=== PATIENT | male | born 1985 | race Caucasian/White ===

== ENCOUNTER 2016-12-30 09:53 | Inpatient (IN) | payer MEDICAID, OTHER ==
[2016-12-30 10:45] LABS: % IMMATURE GRANULYOCYTES 0.5 % (0.0-1.1); ABSOLUTE IMMATURE GRANULOCYTES 0.02 10^3/uL (0.00-0.10); ADD DIFF? NO; ADD MORPH? NO; ADD SCAN? NO; ATYPICAL LYMPHOCYTE FLAG 10 (0-99); FRAGMENT RBC FLAG 0 (0-99); HEMATOCRIT 46.5 % (40.0-51.0); HEMOGLOBIN 15.9 g/dL (13.7-17.5); LEFT SHIFT FLG 0 (0-99); LIPEMIA HEMOLYSIS FLAG 90 (0-99); MEAN CELL HEMOGLOBIN 33.6 pg (27.9-34.1); MEAN CELL HEMOGLOBIN CONCENTR. 34.2 g/dL (32.4-36.7); MEAN CELL VOLUME 98.3 fL (81.5-99.8); MEAN PLATELET VOLUME 9.5 fL (8.7-11.7); PLATELET CLUMPS FLAG 0 (0-99); PLATELET COUNT 272 10^3/uL (150-400); RED BLOOD CELL COUNT 4.73 10^6/uL (4.40-6.38); RED CELL DISTRIBUTION WIDTH 15.3 % (11.5-15.2)
--- NOTE | 2016-12-30 10:45 | EDPHY ---
H & P Smoking Status: Heavy smoker Time Seen by Provider: 12/30/16 10:17 HPI/ROS: CHIEF COMPLAINT: Alcohol intoxication, suicidal ideation HISTORY OF PRESENT ILLNESS: 31-year-old homeless male presents to the emergency department by ambulance with alcohol intoxication. The patient states I want to kill myself. The patient tells me if you do not help me, I will go out and kill myself. 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 He denies homicidal ideation. The patient admitted to the nurse that he used heroin yesterday. He denies any other substance abuse. No reported trauma. REVIEW OF SYSTEMS: Constitutional: No fever, no chills. Eyes: No double or blurry vision. ENT: No sore throat. Respiratory: No cough, no shortness of breath. Cardiac: No chest pain. Gastrointestinal: No abdominal pain, vomiting or diarrhea. Genitourinary: No dysuria. Musculoskeletal: No neck or back pain. Skin: No rashes. Neurological: No headache. (EstherTeresa fink) Past Medical/Surgical History: Alcoholism (Teresa Carlton) Social History: Homeless (Teresa Carlton) Physical Exam: General Appearance: lethargic, no distress. Smells strongly of alcohol. Eyes: Pupils equal and round. Extraocular motions are all intact. ENT: Mouth: Mucous membranes moist. Respiratory: No wheezing, rhonchi, or rales, lungs are clear to auscultation. Cardiovascular: Regular rate and rhythm. Gastrointestinal: Abdomen is soft and nontender, no masses, no rebound or guarding, bowel sounds normal. Neurological: Alert and oriented x 3. Uncooperative, cannot determine. Skin: Warm and dry, no rashes. Musculoskeletal: Nontender to palpate along the cervical, thoracic or lumbar spine. Neck is supple. Extremities: Full range of motion and no peripheral edema. Psychiatric: Patient is oriented X 3, there is no agitation. (Makenna Carltonrina Chase) Constitutional: Initial Vital Signs Temperature (C) 36 C 12/30/16 10:09 Heart Rate 80 12/30/16 10:09 Respiratory Rate 12 12/30/16 10:09 Blood Pressure 118/89 H 12/30/16 10:09 O2 Sat (%) 91 L 12/30/16 10:09 O2 Delivery Mode Room Air O2 (L/minute) 2 Allergies/Adverse Reactions: metal Allergy (Uncoded 12/11/15 12:35) Home Medications: Medication Instructions Recorded NK [No Known Home Meds] 12/02/15 Medical Decision Making ED Course/Re-evaluation: 31-year-old male presents to the emergency department feeling depressed and suicidal. He is acutely intoxicated with alcohol. 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 The patient will be evaluated by mental health when he is medically cleared. He understands when he is clinically sober he can be evaluated by mental health. The patient has been placed on a detainer by myself. The patient is asking to be placed on an M1 hold. He still continues to feel suicidal. At 1500 the patient's repeat alcohol was 234. (Teresa Carlton) 7:00 a.m.- The patient has been stable throughout my shift. He is currently awaiting mental health evaluation pending his sobriety. The case will be signed out to the oncoming provider Dr. Raphael. (Amina Longoria) Differential Diagnosis: Altered mental status including but not limited to hypoglycemia, infectious process, electrolyte abnormality, head injury and intoxicants. Depression including functional and major depression, situational depression, medication side effect, drugs and alcohol abuse. (Teresa Carlton) Other Provider: Patient's care transferred to sc at 5:00 p.m. by Teresa Luis. On my evaluation the patient is sleeping and has no complaints. He is awaiting sobriety and then psychiatric evaluation. 11:00 p.m. the patient has been up into the bathroom. He is clinically sober. We are awaiting psychiatric evaluation. Care transferred to Dr. Ellen Longoria 4:20 p.m. patient's care transferred back to sc by Dr. Nikky Raphael. We are awaiting psychiatric placement. Continues to feel depressed. He told us that he had been vomiting all day although none of this was witnessed by ER staff. 11:00 p.m. patient did have mild withdrawal symptoms and was treated successfully with oral Ativan. He is currently sleeping. Care transferred to Dr. Longoria. We continue to await placement. (Ezequiel Warner) I assumed care of this patient at 7:00 a.m. on December 31, 2016. When I interview him he tells me that he is extremely depressed. He stated that he had been vomiting during the day but there has been no witnessed or reported vomiting. His heart is regular and his lungs are clear. On exam he has mild diffuse abdominal tenderness, no guarding. His care will be transferred to Dr. Warner at 4:15 PM. Awaiting placement. (Nikky Raphael) Care Turn Over: Care will be turned over to Dr. Warner at shift change (Teresa Carlton) - Data Points Laboratory Results: Laboratory Results 12/30/16 09:50 12/30/16 09:50 Medications Given: Discontinued Medications Sodium Chloride (Ns) 1,000 mls @ 0 mls/hr IV ONCE ONE PRN Reason: Wide Open Stop: 12/30/16 11:07 Last Admin: 12/30/16 11:07 Dose: 1,000 mls Sodium Chloride (Ns) 1,000 mls @ 0 mls/hr IV ONCE ONE PRN Reason: Wide Open Stop: 12/30/16 11:34 Last Admin: 12/30/16 11:36 Dose: 1,000 mls Sodium Chloride (Ns) 1,000 mls @ 0 mls/hr IV ONCE ONE PRN Reason: Wide Open Stop: 12/30/16 16:22 Last Admin: 12/30/16 16:49 Dose: 1,000 mls Ibuprofen (Motrin) 600 mg PO EDNOW ONE Stop: 12/31/16 05:20 Last Admin: 12/31/16 05:19 Dose: 600 mg Ibuprofen (Motrin) 600 mg PO EDNOW ONE Stop: 01/01/17 05:08 Last Admin: 01/01/17 05:12 Dose: 600 mg Lorazepam (Ativan Injection) 1 mg IVP EDNOW ONE Stop: 12/30/16 14:36 Last Admin: 12/30/16 14:46 Dose: 1 mg Lorazepam (Ativan Injection) 1 mg IVP ONCE ONE Stop: 12/30/16 18:29 Last Admin: 12/30/16 18:29 Dose: 1 mg Lorazepam (Ativan) 2 mg PO EDNOW ONE Stop: 12/31/16 20:39 Last Admin: 12/31/16 20:52 Dose: 2 mg Lorazepam (Ativan) 2 mg PO EDNOW ONE Stop: 01/01/17 05:09 Last Admin: 01/01/17 05:12 Dose: 2 mg Nicotine (Nicoderm Cq) 14 mg TD EDNOW ONE Stop: 12/31/16 09:15 Last Admin: 12/31/16 09:17 Dose: 14 mg Nicotine Polacrilex (Nicorette) 2 mg B ONCE ONE Stop: 12/30/16 20:16 Last Admin: 12/30/16 19:45 Dose: 2 mg Ondansetron HCl (Zofran) 4 mg IVP EDNOW ONE Stop: 12/30/16 14:36 Last Admin: 12/30/16 14:46 Dose: 4 mg Ondansetron HCl (Zofran Odt) 4 mg PO EDNOW ONE Stop: 12/31/16 22:19 Last Admin: 12/31/16 22:31 Dose: 4 mg Departure - Departure Clinical Impression: Suicidal ideation Alcoholic intoxication Qualifiers: Complication of substance-induced condition: uncomplicated Qualified Code(s): F10.120 - Alcohol abuse with intoxication, uncomplicated Condition: Fair Referrals: [facility] [Outside] - As per Instructions
[2016-12-30 10:55] LABS: ALANINE AMINOTRANSFERASE 48 IU/L (21-72); ALBUMIN 4.3 g/dL (3.5-5.0); ALKALINE PHOSPHATASE 97 IU/L (38-126); ANION GAP 16 mEq/L (8-16); ASPARTATE AMINOTRANSFERASE 58 IU/L (17-59); BILIRUBIN,TOTAL 0.5 mg/dL (0.1-1.4); BILIRUBIN-CONJUGATED 0.3 mg/dL (0.0-0.5); BILIRUBIN-UNCONJUGATED 0.2 mg/dL (0.0-1.1); CALCIUM 8.5 mg/dL (8.5-10.4); CARBON DIOXIDE 25 mEq/l (22-31); CHLORIDE 106 mEq/L (97-110); CREATININE 0.7 mg/dL (0.7-1.3); GLOMERULAR FILTRATION RATE > 60; GLUCOSE 111 mg/dL (70-100); POTASSIUM 4.1 mEq/L (3.5-5.2); SALICYLATE < 1.0 mg/dL (2.0-20.0); SODIUM 147 mEq/L (134-144); TOTAL PROTEIN 7.4 g/dL (6.3-8.2)
[2016-12-30] MEDS ORDERED: NS 1,000 ML IV ONE ×3 (11:06→16:21)
[2016-12-30 11:24] LABS: ETHANOL SERUM 417 mg/dL (0-10)
[2016-12-30] MEDS ORDERED: LORazepam 2 MG/ML INJ IVP ONE ×2 (14:35→18:28)
[2016-12-30] MEDS ORDERED: ONDANSETRON 4 MG/2 ML VIAL IVP ONE (14:35)
[2016-12-30] MEDS ORDERED: LORazepam 2 MG/ML INJ ONE (18:16)
[2016-12-30] MEDS ORDERED: NICOTINE POLACRILEX 2 MG GUM B ONE ×2 (19:47→20:15)
[2016-12-31] MEDS ORDERED: IBUPROFEN 600 MG TAB PO ONE ×2 (05:15→05:19)
[2016-12-31] MEDS ORDERED: NICOTINE 14 MG/24 HR PATCH TD ONE (09:14)
[2016-12-31] MEDS ORDERED: LORazepam 1 MG TAB PO ONE (20:38)
[2016-12-31] MEDS ORDERED: ONDANSETRON DISINTEGRATING 4 MG TAB PO ONE (22:18)
[2017-01-01] MEDS ORDERED: IBUPROFEN 600 MG TAB PO ONE (05:07)
[2017-01-01] MEDS ORDERED: LORazepam 1 MG TAB PO ONE ×3 (05:08→17:25)
[2017-01-01] MEDS ORDERED: LORazepam 1 MG TAB ONE (12:08)
[2017-01-01] MEDS ORDERED: NICOTINE 21 MG/24 HR PATCH TD ONE (12:09)
[2017-01-01] MEDS ORDERED: ONDANSETRON DISINTEGRATING 4 MG TAB ONE (18:30)
[2017-01-01] MEDS ORDERED: OLANZapine DISINTEGR 5 MG TAB PO PRN (21:26)
[2017-01-01] MEDS: LORazepam 0.5 MG TAB PO PRN (21:54)
[2017-01-02] MEDS: LORazepam 0.5 MG TAB PO PRN ×2 (08:26→12:36)
[2017-01-02] MEDS: NICOTINE 21 MG/24 HR PATCH TD SCH (08:26)
[2017-01-02] MEDS: NICOTINE POLACRILEX 2 MG GUM B PRN ×4 (12:36→22:51)
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
[2017-01-02] MEDS ORDERED: PROMETHAZINE HCL 25 MG SUPPR PR PRN (16:14)
[2017-01-02] MEDS ORDERED: MAGNESIUM HYDROXIDE 30 ML UDCUP PO PRN (16:14)
[2017-01-02] MEDS ORDERED: PROMETHAZINE HCL 25 MG TAB PO PRN (16:14)
[2017-01-02] MEDS ORDERED: THIAMINE HCL 100 MG TAB PO ONE (16:14)
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
[2017-01-02] MEDS: QUEtiapine FUMARATE 50 MG TAB PO PRN ×2 (18:53→22:51)
[2017-01-02] MEDS: IBUPROFEN 200 MG TAB PO PRN (22:51)
[2017-01-03] MEDS: chlordiazePOXIDE 25 MG CAP PO PRN ×4 (08:34→22:46)
[2017-01-03] MEDS: NICOTINE 21 MG/24 HR PATCH TD SCH (08:35)
[2017-01-03] MEDS: IBUPROFEN 200 MG TAB PO PRN ×2 (10:45→15:50)
[2017-01-03] MEDS: NICOTINE POLACRILEX 2 MG GUM B PRN ×4 (10:47→20:52)
[2017-01-03] MEDS: MULTIVITAMINS 1 EACH TAB PO SCH (10:47)
[2017-01-03] MEDS: FOLIC ACID 1 MG TAB PO SCH (10:48)
--- NOTE | 2017-01-03 11:39 | SOAPPROG ---
SOAP Progress Note Assessment/Plan: Assessment: Plan: 01/03/17 11:38 Some withdrawal sx's. Continue CIWA. Continue supportive therapies. Change to voluntary status. Subjective: Pt seen, discussed with staff. Vomiting this morning. Given Librium. Remains distraught, stating, "My life is over, I have nothing to live for." Requests help with housing though also states, "I know I'll leave it and go drink anyway so it's hopeless." Objective: Vital Signs Temp Pulse Resp BP Pulse Ox 36.6 C 100 12 134/94 H 99 01/02/17 22:57 01/03/17 08:33 01/03/17 08:16 01/03/17 08:16 01/03/17 08:16 01/02/17 01/03/17 01/04/17 05:59 05:59 05:59 Intake Total 4000 Balance 4000 MSE: Calm, coop. Affect is constricted, stable. Mood is "terrible, the worst. " TP linear. TC reveals no mention of AH's or paranoia. SI persists conditional on housing. - Time Spent With Patient Time Spent With Patient: 25" - Pending Discharge Pending Discharge Within 24 Hours: No Pending Discharge Within 48 Hours: No ICD10 Worksheet Patient Problems: Problems Problem Status Onset Alcoholic intoxication Acute Suicidal ideation Acute Alcohol withdrawal Acute
[2017-01-03] MEDS: THIAMINE HCL 100 MG TAB PO SCH (15:40)
[2017-01-03] MEDS: MAG HYDROX/AL HYDROX/SIMETH 30 ML UDCUP PO PRN ×2 (15:50→20:52)
[2017-01-03] MEDS: QUEtiapine FUMARATE 50 MG TAB PO PRN ×2 (19:25→23:28)
[2017-01-04] MEDS: FOLIC ACID 1 MG TAB PO SCH (08:16)
[2017-01-04] MEDS: MULTIVITAMINS 1 EACH TAB PO SCH (08:16)
[2017-01-04] MEDS: NICOTINE 21 MG/24 HR PATCH TD SCH (08:16)
[2017-01-04] MEDS: THIAMINE HCL 100 MG TAB PO SCH (08:18)
[2017-01-04] MEDS: NICOTINE POLACRILEX 2 MG GUM B PRN ×8 (09:55→21:45)
[2017-01-04] MEDS ORDERED: TUBERCULIN (PPD) 5 TU/0.1 ML SYRINGE ID ONE (10:45)
--- NOTE | 2017-01-04 10:55 | SOAPPROG ---
SOAP Progress Note Assessment/Plan: Assessment: Pt is a 31 S C male who is homeless with a hx of severe alcoholism who states he blackouts every time he drinks who came in with cc/o SI with plan. Pt was sober for 3 years in the past. Plan:start Lexapro 5mg QD for anxiety/depression D/C CIWA's D/C SP and pt can shave to help self esteem pt is vol 01/04/17 10:50 Subjective: c/o feeling hopeless Objective: Vital Signs Temp Pulse Resp BP Pulse Ox 36.8 C 78 14 121/67 H 94 01/04/17 06:30 01/04/17 06:30 01/04/17 06:30 01/04/17 06:30 01/04/17 06:30 Pt is A+O x4 mood-depressed affect-appr thoughts-logical reports chronic AH but does not appear to be responding to internal stimuli speech-wnl slept 9 hours no sx of psychosis/elena observed appetite-fair energy level-low I/J-limited - Time Spent With Patient Time Spent With Patient: 30' - Pending Discharge Pending Discharge Within 24 Hours: No Pending Discharge Within 48 Hours: No ICD10 Worksheet Patient Problems: Problems Problem Status Onset Alcoholic intoxication Acute Suicidal ideation Acute Alcohol withdrawal Acute
[2017-01-04] MEDS ORDERED: IBUPROFEN 200 MG TAB PO PRN (10:56)
[2017-01-04] MEDS: IBUPROFEN 800 MG TAB PO PRN ×2 (11:06→19:29)
[2017-01-04] MEDS: LORazepam 0.5 MG TAB PO PRN ×2 (11:08→17:24)
[2017-01-04] MEDS: ESCITALOPRAM OXALATE 10 MG TAB PO SCH (11:08)
[2017-01-04] MEDS ORDERED: PREPARATION H 51 GM CRTUBE PR PRN (14:17)
[2017-01-04] MEDS: PHENYLEPHRINE/SHK LV/MO/PET,WH 1 APP/GM OINT PR PRN (17:24)
[2017-01-04] MEDS: QUEtiapine FUMARATE 50 MG TAB PO PRN (20:58)
[2017-01-05] MEDS: LORazepam 0.5 MG TAB PO PRN ×3 (06:06→17:08)
[2017-01-05] MEDS: NICOTINE POLACRILEX 2 MG GUM B PRN ×6 (06:09→21:02)
[2017-01-05] MEDS: MULTIVITAMINS 1 EACH TAB PO SCH (07:51)
[2017-01-05] MEDS: THIAMINE HCL 100 MG TAB PO SCH (07:51)
[2017-01-05] MEDS: FOLIC ACID 1 MG TAB PO SCH (07:51)
[2017-01-05] MEDS: ESCITALOPRAM OXALATE 10 MG TAB PO SCH (07:52)
[2017-01-05] MEDS: NICOTINE 21 MG/24 HR PATCH TD SCH (07:55)
[2017-01-05] MEDS: IBUPROFEN 800 MG TAB PO PRN ×2 (09:09→17:08)
[2017-01-05] MEDS: PHENYLEPHRINE/SHK LV/MO/PET,WH 1 APP/GM OINT PR PRN ×2 (09:09→21:11)
[2017-01-05] MEDS: QUEtiapine FUMARATE 50 MG TAB PO PRN ×2 (12:12→21:02)
--- NOTE | 2017-01-05 12:55 | SOAPPROG ---
SOAP Progress Note Assessment/Plan: Assessment: Plan: 01/03/17 11:38 Some withdrawal sx's. Continue CIWA. Continue supportive therapies. Change to voluntary status. 01/05/17 12:54 Remains depressed. Will CCM. Subjective: Pt seen, discussed with staff. Reports feeling "terrible, hopeless." States, "I can't go on, I'm really suicidal. There's no hope for me." Started Lexapro 5mg yesterday and believes it interfered with his sleep last night. He remains intermittently nauseated though no signs or sx's of w/drawal. VS slightly elevated this morning. Objective: Vital Signs Temp Pulse Resp BP Pulse Ox 36.4 C 72 14 140/89 H 98 01/05/17 06:19 01/05/17 06:19 01/05/17 06:19 01/05/17 06:19 01/05/17 06:19 MSE: Moderately anxious, coop, interactive. Affect is blunted, dysphoric, anxious, stable. Mood is "terrible." TP linear. TC reveals no psychosis. SI persists. - Time Spent With Patient Time Spent With Patient: 25" - Pending Discharge Pending Discharge Within 24 Hours: No Pending Discharge Within 48 Hours: No ICD10 Worksheet Patient Problems: Problems Problem Status Onset Alcoholic intoxication Acute Suicidal ideation Acute Alcohol withdrawal Acute
[2017-01-05] MEDS: PROMETHAZINE HCL 25 MG TAB PO PRN (14:13)
[2017-01-06 06:17] VITALS: TEMP 97.5
[2017-01-06] MEDS: FOLIC ACID 1 MG TAB PO SCH (08:06)
[2017-01-06] MEDS: NICOTINE 21 MG/24 HR PATCH TD SCH (08:06)
[2017-01-06] MEDS: NICOTINE POLACRILEX 2 MG GUM B PRN ×7 (08:06→22:09)
[2017-01-06] MEDS: MULTIVITAMINS 1 EACH TAB PO SCH (08:06)
[2017-01-06] MEDS: PHENYLEPHRINE/SHK LV/MO/PET,WH 1 APP/GM OINT PR PRN ×2 (09:04→17:43)
[2017-01-06] MEDS: LORazepam 0.5 MG TAB PO PRN ×2 (09:55→16:21)
[2017-01-06] MEDS: QUEtiapine FUMARATE 50 MG TAB PO PRN ×3 (10:54→22:08)
--- NOTE | 2017-01-06 13:59 | SOAPPROG ---
SOAP Progress Note Assessment/Plan: Assessment: Plan: 01/03/17 11:38 Some withdrawal sx's. Continue CIWA. Continue supportive therapies. Change to voluntary status. 01/05/17 12:54 Remains depressed. Will CCM. 01/06/17 13:59 Mood remains subjectively depressed. Focused on social needs/secondary gain. Compliant with treatment. CCM. Subjective: Pt seen, discussed with staff. Reports feeling "terrible." States, "I'm really anxious. I'm afraid you are going to discharge me and I'm not ready." Remains focused on housing. States he wants to continue Seroquel but not Lexapro. We reviewed the potential role of Lexapro for his depression. Despite persistently identifying himself as depressed and suicidal, he continues to state that "this is all from my Schizophrenia." Objective: Vital Signs Temp Pulse Resp BP Pulse Ox 36.4 C 79 14 113/70 95 01/06/17 06:15 01/06/17 06:15 01/06/17 06:15 01/06/17 06:15 01/06/17 06:15 MSE: Calm, coop. Affect is constricted, stable. Mood is "terrible." TP linear. TC reveals no psychosis. SI persists. - Time Spent With Patient Time Spent With Patient: 25" - Pending Discharge Pending Discharge Within 24 Hours: No Pending Discharge Within 48 Hours: No ICD10 Worksheet Patient Problems: Problems Problem Status Onset Alcoholic intoxication Acute Suicidal ideation Acute Alcohol withdrawal Acute
[2017-01-06] MEDS: IBUPROFEN 800 MG TAB PO PRN (17:44)
[2017-01-07] MEDS: ESCITALOPRAM OXALATE 10 MG TAB PO SCH (08:20)
[2017-01-07] MEDS: NICOTINE 21 MG/24 HR PATCH TD SCH (08:21)
[2017-01-07] MEDS: MULTIVITAMINS 1 EACH TAB PO SCH (08:22)
[2017-01-07] MEDS: NICOTINE POLACRILEX 2 MG GUM B PRN ×5 (08:22→22:58)
[2017-01-07] MEDS: LORazepam 0.5 MG TAB PO PRN ×2 (08:22→17:26)
[2017-01-07] MEDS: PROMETHAZINE HCL 25 MG TAB PO PRN (08:23)
[2017-01-07] MEDS: IBUPROFEN 800 MG TAB PO PRN ×2 (09:45→18:07)
[2017-01-07] MEDS: FOLIC ACID 1 MG TAB PO SCH (12:27)
[2017-01-07] MEDS: QUEtiapine FUMARATE 50 MG TAB PO PRN ×2 (12:57→22:16)
[2017-01-07] MEDS: PHENYLEPHRINE/SHK LV/MO/PET,WH 1 APP/GM OINT PR PRN (18:14)
--- NOTE | 2017-01-07 22:06 | SOAPPROG ---
SOAP Progress Note Assessment/Plan: Assessment: Plan: 01/03/17 11:38 Some withdrawal sx's. Continue CIWA. Continue supportive therapies. Change to voluntary status. 01/05/17 12:54 Remains depressed. Will CCM. 01/06/17 13:59 Mood remains subjectively depressed. Focused on social needs/secondary gain. Compliant with treatment. CCM. 01/07/17 22:07 Improved though remains focused on housing. CCM. Likely d/c first of the week when dispo is available. Subjective: Pt seen, discussed with staff. Remains dramatic, stating he will kill himself if not d/c'd to a permanent living circumstance. Refusing Lexapro due to previously noted denial of mood issues and insistence on Schizophrenic dx. Objective: Vital Signs Temp Pulse Resp BP Pulse Ox 36.4 C 76 14 112/70 96 01/07/17 06:00 01/07/17 06:00 01/07/17 06:00 01/07/17 06:00 01/07/17 06:00 MSE: Calm, coop. Affect is euthymic, stable. Mood is "terrible."' TP linear. TC reveals no psychosis. SI "06/22." - Time Spent With Patient Time Spent With Patient: 15" - Pending Discharge Pending Discharge Within 24 Hours: No Pending Discharge Within 48 Hours: No ICD10 Worksheet Patient Problems: Problems Problem Status Onset Alcoholic intoxication Acute Suicidal ideation Acute Alcohol withdrawal Acute
[2017-01-08] MEDS: QUEtiapine FUMARATE 50 MG TAB PO PRN ×2 (06:49→13:59)
[2017-01-08] MEDS: LORazepam 0.5 MG TAB PO PRN ×3 (07:01→19:23)
[2017-01-08] MEDS: PROMETHAZINE HCL 25 MG TAB PO PRN (07:01)
[2017-01-08] MEDS: MULTIVITAMINS 1 EACH TAB PO SCH (08:14)
[2017-01-08] MEDS: ESCITALOPRAM OXALATE 10 MG TAB PO SCH (08:14)
[2017-01-08] MEDS: NICOTINE 21 MG/24 HR PATCH TD SCH (08:15)
[2017-01-08] MEDS: FOLIC ACID 1 MG TAB PO SCH (08:24)
[2017-01-08] MEDS: NICOTINE POLACRILEX 2 MG GUM B PRN ×6 (11:50→21:28)
[2017-01-08] MEDS: PHENYLEPHRINE/SHK LV/MO/PET,WH 1 APP/GM OINT PR PRN (13:05)
[2017-01-08] MEDS: QUEtiapine FUMARATE 100 MG TAB PO SCH (20:09)
[2017-01-08] MEDS: IBUPROFEN 800 MG TAB PO PRN (20:28)
--- NOTE | 2017-01-08 22:45 | SOAPPROG ---
SOAP Progress Note Assessment/Plan: Assessment: Plan: 01/03/17 11:38 Some withdrawal sx's. Continue CIWA. Continue supportive therapies. Change to voluntary status. 01/05/17 12:54 Remains depressed. Will CCM. 01/06/17 13:59 Mood remains subjectively depressed. Focused on social needs/secondary gain. Compliant with treatment. CCM. 01/07/17 22:07 Improved though remains focused on housing. CCM. Likely d/c first of the week when dispo is available. 01/08/17 22:45 Stable. Appropriate for d/c tomorrow. Subjective: Pt seen, discussed with staff. Reports feeling ready to leave tomorrow, but still feels "pretty unsafe if I don't have housing." Compliant with meds, though told staff last night that he had no intention of taking meds or doing f/ u after d/c. Objective: Vital Signs Temp Pulse Resp BP Pulse Ox 36.4 C 76 14 112/70 96 01/07/17 06:00 01/07/17 06:00 01/07/17 06:00 01/07/17 06:00 01/07/17 06:00 MSE: Calm, coop. Affect is euthymic, stable. Mood is "OK." TP linear. TC reveals no psychosis. No current SI. - Time Spent With Patient Time Spent With Patient: 25" - Pending Discharge Pending Discharge Within 24 Hours: Yes Pending Discharge Date: 01/09/17 Pending Discharge Time: 11:00 ICD10 Worksheet Patient Problems: Problems Problem Status Onset Alcoholic intoxication Acute Suicidal ideation Acute Alcohol withdrawal Acute
[2017-01-09] MEDS: QUEtiapine FUMARATE 50 MG TAB PO PRN ×3 (03:08→20:07)
[2017-01-09] MEDS: NICOTINE POLACRILEX 2 MG GUM B PRN ×9 (03:09→22:29)
[2017-01-09] MEDS: PROMETHAZINE HCL 25 MG TAB PO PRN (08:06)
[2017-01-09] MEDS: PHENYLEPHRINE/SHK LV/MO/PET,WH 1 APP/GM OINT PR PRN (09:07)
[2017-01-09] MEDS: MULTIVITAMINS 1 EACH TAB PO SCH (09:13)
[2017-01-09] MEDS: NICOTINE 21 MG/24 HR PATCH TD SCH (09:14)
[2017-01-09] MEDS: FOLIC ACID 1 MG TAB PO SCH (09:14)
[2017-01-09] MEDS: ESCITALOPRAM OXALATE 10 MG TAB PO SCH (09:30)
[2017-01-09] MEDS: LORazepam 0.5 MG TAB PO PRN ×2 (10:44→17:05)
[2017-01-09] MEDS: IBUPROFEN 800 MG TAB PO PRN (10:44)
--- NOTE | 2017-01-09 18:55 | SOAPPROG ---
SOAP Progress Note Assessment/Plan: Assessment: Plan: 01/03/17 11:38 Some withdrawal sx's. Continue CIWA. Continue supportive therapies. Change to voluntary status. 01/05/17 12:54 Remains depressed. Will CCM. 01/06/17 13:59 Mood remains subjectively depressed. Focused on social needs/secondary gain. Compliant with treatment. CCM. 01/07/17 22:07 Improved though remains focused on housing. CCM. Likely d/c first of the week when dispo is available. 01/08/17 22:45 Stable. Appropriate for d/c tomorrow. 01/09/17 18:54 No change. Lots of secondary gain and drama. CCM, finalize d/c plan tomorroe. Subjective: Pt seen, discussed with staff. He reports being "too afraid" to d/c this morning. States he is "about to fall apart." I indicated to him that he has been here too long already and he agrees. Refused Lexapro again today and told RN he wasn't going to take any meds when he leaves the hospital. Objective: Vital Signs Temp Pulse Resp BP Pulse Ox 36.4 C 76 14 112/70 96 01/07/17 06:00 01/07/17 06:00 01/07/17 06:00 01/07/17 06:00 01/07/17 06:00 - Time Spent With Patient Time Spent With Patient: 15: ICD10 Worksheet Patient Problems: Problems Problem Status Onset Alcoholic intoxication Acute Suicidal ideation Acute Alcohol withdrawal Acute
[2017-01-09] MEDS: QUEtiapine FUMARATE 100 MG TAB PO SCH (21:19)
[2017-01-10] MEDS: QUEtiapine FUMARATE 50 MG TAB PO PRN (03:03)
[2017-01-10] MEDS: LORazepam 0.5 MG TAB PO PRN (03:03)
[2017-01-10] MEDS: NICOTINE POLACRILEX 2 MG GUM B PRN ×4 (03:04→10:36)
[2017-01-10 06:21] VITALS: BP 116/78; PULSE 89; RESP 16; O2SAT 98
[2017-01-10] MEDS: PHENYLEPHRINE/SHK LV/MO/PET,WH 1 APP/GM OINT PR PRN (09:09)
[2017-01-10] MEDS: FOLIC ACID 1 MG TAB PO SCH ×2 (09:11→10:35)
[2017-01-10] MEDS: ESCITALOPRAM OXALATE 10 MG TAB PO SCH (09:11)
[2017-01-10] MEDS: MULTIVITAMINS 1 EACH TAB PO SCH ×2 (09:12→10:35)
[2017-01-10] MEDS: NICOTINE 21 MG/24 HR PATCH TD SCH (09:12)
--- NOTE | 2017-01-12 18:19 | BDS ---
REASON FOR ADMISSION: Patient is a 31-year-old male who presented to the emergency depart formerly [facility] with a self-reported history of schizophrenia, depression, and bipolar disorder. He is homeles s and was heavily alcoholic. He presented on 12/30/2016 with a blood alcohol of 417. He had been i n a treatment program in [place] called [facility] for 2 months, and then decided abruptly to leav e and go on a binge. He was drinking for approximately a month prior to presenting to our hospital requesting hospitalization. A full description of the events preceding admission can be found in ks s admission history dated 01/02/2017. ADMITTING DIAGNOSES: Alcohol use disorder, severe. Schizophrenia by self-report. Possible major d epression, recurrent, severe, with psychosis. Homelessness, lack of supports. ADMISSION PHYSICAL EXAMINATION: Performed by Dr. Michael Kunz revealed no acute physical finding s. ADMISSION LABORATORY: CBC showed no significant abnormalities. Serum chemistry showed a sodium of 147, nonfasting glucose up at 111, otherwise normal. Liver function was normal. TSH was normal. [facility] drug screen was positive for benzodiazepines and marijuana. Alcohol was 417. HOSPITAL COURSE: Patient was admitted to the behavioral health services inpatient unit on an M1 hol d. He reported to me the history of schizophrenia, stating he heard voices and that he needed to be back on some form of medication. This seemed very questionable that he did not have any evidence o f disorganized thought and it seemed that this was likely a mechanism for him to request admission. A lot of secondary gain was obvious and malingering was considered. The patient had been in our em ergency department 12 times in the past year seeking treatment for alcohol or suicidality. He state d, on a daily basis, that if he did not get into a program of some form like the one he just left [facility] or permanent housing, that he was going to kill himself. scanning coordinator worked with the patient on a daily basis and considered several residential treatment programs, but he was unable t o get into those due to waiting lists. On the day of discharge, the patient stated that he felt wel l, that he had no thoughts of suicide, and he wanted to discharge. I reviewed with him the possibil ity that he would go and drink, and he stated that he did not want to drink, that he simply felt bet ter and wanted to go back to [place] where he had previously obtained services. Throughout his stay, patient was given Seroquel at bedtime to help with sleep and mood and tolerated this well with no side effects. CONDITION AT DISCHARGE: Stable. He was demonstrating euthymic, stable, and appropriate affect, and no evidence of psychosis. It is my firm belief that he has no chronic psychotic disorder, and I do not see evidence of an acute mood disorder, either. DISCHARGE DIAGNOSES: Alcohol use disorder, severe. Homelessness, addiction, lack of supports, poss ible mood disorder, no otherwise specified. DISCHARGE MEDICATIONS: Seroquel 100 mg p.o. q.h.s. DISPOSITION: The patient left the hospital of his own volition with a bus pass to return to [place]. FOLLOWUP: The patient states that he would either go to a senior living or attend [facility] appointment, which was scheduled for him before discharge. The patient refused referral to detox, s tating that he was "sick of rehabs." LEGAL COURSE: The patient was converted to a voluntary status at the expiration of his M1 hold. /[id number]/MODL
== END 2017-01-10 11:10 | disposition home or self-care (01) | DRG 897 ==
LOC: EDUNIT# → BBEH 01-01 19:30
PROVIDERS: ADMIT Psychiatry & Neurology Behavioral Neurology & Neuropsychiatry; ATTEND Psychiatry & Neurology Behavioral Neurology & Neuropsychiatry
DX: F10.220 Alcohol dependence with intoxication, uncomplicated (principal); Y90.7 Blood alcohol level of 200-239 mg/100 ml; F17.200 Nicotine dependence, unspecified, uncomplicated; F12.90 Cannabis use, unspecified, uncomplicated; F20.9 Schizophrenia, unspecified; F39 Unspecified mood [affective] disorder; Z59.0 Homelessness; Z87.820 Personal history of traumatic brain injury
CPT/HCPCS: 80305; 96374; G0480; J2405

== ENCOUNTER 2017-01-12 06:36 | Emergency (ER) | payer MEDICAID ==
[2017-01-12 06:56] VITALS: TEMP 98.2
[2017-01-12] MEDS ORDERED: chlordiazePOXIDE 25 MG CAP PO ONE ×2 (07:04→10:34)
[2017-01-12] MEDS ORDERED: LORazepam 2 MG/ML INJ IVP ONE ×2 (07:04→08:11)
[2017-01-12] MEDS ORDERED: NS 1,000 ML IV ONE ×2 (07:05→10:34)
--- NOTE | 2017-01-12 07:08 | EDPHY ---
H & P Time Seen by Provider: 01/12/17 07:00 HPI/ROS: CHIEF COMPLAINT: "I need to stop drinking" HISTORY OF PRESENT ILLNESS: The patient is a 31-year-old male with a history of schizophrenia and alcohol abuse who presents to the emergency department complaining of suicidal ideation and alcohol abuse. The patient states he has been drinking heavily. He drank last evening "pure alcohol." Patient states " I just can be homeless any more." He feels as though he is having alcohol withdrawal. He feels jittery and nauseated. Patient states that he wants to end his life because he can come on. He has no specific plan. REVIEW OF SYSTEMS: My complete review of systems is negative except as mentioned in the HPI. Past Medical/Surgical History: Includes alcohol abuse, schizophrenia, anxiety Social history: The patient drinks alcohol. Positive THC Smoking Status: Heavy smoker Physical Exam: Vitals noted. Tachycardic GENERAL: No acute distress, alert. HEENT: Eyes normal to inspection, normal pharynx, no signs of dehydration. NECK: No thyromegaly, no lymphadenopathy, supple. RESPIRATORY: Clear to auscultation bilaterally, no rales, rhonchi or wheezing. CVS: regular tachycardia, no rubs, murmurs, or gallops. ABDOMEN: Soft, nontender, nondistended, no organomegaly. BACK: Normal to inspection, no CVA tenderness. SKIN: Dirty. Normal color, no rash, warm, dry. No pallor. EXTREMITIES: No pedal edema, no calf tenderness, no Homans sign or cords, no joint swelling. NEURO/PSYCH: Alert and oriented, normal mood and affect, normal motor sensory exam. Constitutional: Initial Vital Signs Temperature (C) 36.8 C 01/12/17 06:53 Heart Rate 118 H 01/12/17 06:53 Respiratory Rate 20 01/12/17 06:53 Blood Pressure 133/83 H 01/12/17 06:53 O2 Sat (%) 96 01/12/17 06:53 O2 Delivery Mode Room Air Allergies/Adverse Reactions: metal Allergy (Uncoded 01/12/17 06:53) Home Medications: Medication Instructions Recorded QUEtiapine FUMARATE [Seroquel 100 100 mg PO HS #30 tab 01/10/17 mg (*)] Medical Decision Making ED Course/Re-evaluation: In the emergency department I discussed the plan with the patient. I answered all his questions. IV was placed. Patient was given normal saline 1 L IV for hydration. The patient was given Librium 25 mg orally and Ativan 1 mg IV for alcohol withdrawal. Patient was placed on a mental health hold. Psychiatric Services were contacted. Laboratory studies were ordered. On recheck the patient was still tachycardic. He is given a repeat dose of Ativan 1 mg IV. 1035: On recheck, the patient was still tachycardic. Patient was given normal saline 1 L IV for hydration. He was given a repeat dose of Librium 25 mg orally. Rechecked the patient on numerous occasions. His heart rate stabilized. 1425: The patient is being evaluated by EPS. EPS completed their evaluation. They felt the patient was safe for discharge. Dr. Chaudhry is lifting the hold. I discussed the plan with the patient. I answered all his questions. He is given warnings prior to leaving. Differential Diagnosis: My differential includes but is not limited to schizophrenia, depression, suicide ideation, alcohol abuse, alcohol intoxication, alcohol withdrawal, drug abuse, overdose, dehydration - Data Points Laboratory Results: Laboratory Results 01/12/17 06:58 01/12/17 06:58 01/12/17 01/12/17 01/12/17 07:50 06:58 06:58 WBC 9.15 10^3/uL 10^3/uL (3.80-9.50) RBC 4.81 10^6/uL 10^6/uL (4.40-6.38) Hgb 16.4 g/dL g/dL (13.7-17.5) Hct 46.7 % % (40.0-51.0) MCV 97.1 fL fL (81.5-99.8) MCH 34.1 pg pg (27.9-34.1) MCHC 35.1 g/dL g/dL (32.4-36.7) RDW 14.6 % % (11.5-15.2) Plt Count 326 10^3/uL 10^3/uL (150-400) MPV 9.3 fL fL (8.7-11.7) Neut % (Auto) 62.7 % % (39.3-74.2) Lymph % (Auto) 22.4 % % (15.0-45.0) [place] % (Auto) 12.9 % % (4.5-13.0) Eos % (Auto) 0.3 % L % (0.6-7.6) Baso % (Auto) 1.3 % % (0.3-1.7) Nucleat RBC Rel Count 0.0 % % (0.0-0.2) Absolute Neuts (auto) 5.73 10^3/uL 10^3/uL (1.70-6.50) Absolute Lymphs (auto) 2.05 10^3/uL 10^3/uL (1.00-3.00) Absolute Monos (auto) 1.18 10^3/uL H 10^3/uL (0.30-0.80) Absolute Eos (auto) 0.03 10^3/uL 10^3/uL (0.03-0.40) Absolute Basos (auto) 0.12 10^3/uL H 10^3/uL (0.02-0.10) Absolute Nucleated RBC 0.00 10^3/uL 10^3/uL (0-0.01) Immature Gran % 0.4 % % (0.0-1.1) Immature Gran # 0.04 10^3/uL 10^3/uL (0.00-0.10) Sodium 144 mEq/L mEq/L (134-144) Potassium 4.1 mEq/L mEq/L (3.5-5.2) Chloride 105 mEq/L mEq/L (97-110) Carbon Dioxide 21 mEq/l L mEq/l (22-31) Anion Gap 18 mEq/L H mEq/L (8-16) BUN 13 mg/dL mg/dL (7-23) Creatinine 0.9 mg/dL mg/dL (0.7-1.3) Estimated GFR > 60 Glucose 76 mg/dL mg/dL (70-100) Calcium 9.7 mg/dL mg/dL (8.5-10.4) Salicylates < 1.0 mg/dL L mg/dL (2.0-20.0) Urine Opiates Screen NEGATIVE (NEGATIVE) Acetaminophen < 10 mcg/mL L mcg/mL (10.0-30.0) Urine Barbiturates NEGATIVE (NEGATIVE) Ur Phencyclidine Scrn NEGATIVE (NEGATIVE) Ur Amphetamine Screen NEGATIVE (NEGATIVE) U Benzodiazepines Scrn NON-NEGATIVE H (NEGATIVE) Urine Cocaine Screen NEGATIVE (NEGATIVE) U Marijuana (THC) Screen NON-NEGATIVE H (NEGATIVE) Ethyl Alcohol 118 mg/dL H mg/dL (0-10) Medications Given: Discontinued Medications Chlordiazepoxide HCl (Librium) 25 mg PO EDNOW ONE Stop: 01/12/17 07:05 Last Admin: 01/12/17 07:21 Dose: 25 mg Chlordiazepoxide HCl (Librium) 25 mg PO EDNOW ONE Stop: 01/12/17 10:35 Last Admin: 01/12/17 10:40 Dose: 25 mg Sodium Chloride (Ns) 1,000 mls @ 0 mls/hr IV ONCE ONE PRN Reason: Wide Open Stop: 01/12/17 07:06 Last Admin: 01/12/17 07:07 Dose: 1,000 mls Sodium Chloride (Ns) 1,000 mls @ 0 mls/hr IV ONCE ONE PRN Reason: Wide Open Stop: 01/12/17 10:35 Last Admin: 01/12/17 10:40 Dose: 1,000 mls Lorazepam (Ativan Injection) 1 mg IVP EDNOW ONE Stop: 01/12/17 07:05 Last Admin: 01/12/17 07:21 Dose: 1 mg Lorazepam (Ativan Injection) 1 mg IVP EDNOW ONE Stop: 01/12/17 08:12 Last Admin: 01/12/17 10:35 Dose: 1 mg Nicotine Polacrilex (Nicorette) 2 mg B EDNOW ONE Stop: 01/12/17 07:22 Last Admin: 01/12/17 07:35 Dose: 2 mg Departure - Departure Disposition: Home, Routine, Self-Care Clinical Impression: Suicidal ideation Alcoholic intoxication Qualifiers: Complication of substance-induced condition: uncomplicated Qualified Code(s): F10.120 - Alcohol abuse with intoxication, uncomplicated Alcohol withdrawal Qualifiers: Complication of substance-induced condition: uncomplicated Qualified Code(s): F10.230 - Alcohol dependence with withdrawal, uncomplicated Condition: Good Instructions: Alcohol Withdrawal (ED), Depression (ED) Referrals: [facility],. [Clinic] - As per Instructions
[2017-01-12 07:15] LABS: % IMMATURE GRANULYOCYTES 0.4 % (0.0-1.1); ABSOLUTE IMMATURE GRANULOCYTES 0.04 10^3/uL (0.00-0.10); ADD DIFF? NO; ADD MORPH? NO; ADD SCAN? NO; ATYPICAL LYMPHOCYTE FLAG 30 (0-99); FRAGMENT RBC FLAG 0 (0-99); HEMATOCRIT 46.7 % (40.0-51.0); HEMOGLOBIN 16.4 g/dL (13.7-17.5); LEFT SHIFT FLG 0 (0-99); LIPEMIA HEMOLYSIS FLAG 90 (0-99); MEAN CELL HEMOGLOBIN 34.1 pg (27.9-34.1); MEAN CELL HEMOGLOBIN CONCENTR. 35.1 g/dL (32.4-36.7); MEAN CELL VOLUME 97.1 fL (81.5-99.8); MEAN PLATELET VOLUME 9.3 fL (8.7-11.7); PLATELET CLUMPS FLAG 0 (0-99); PLATELET COUNT 326 10^3/uL (150-400); RED BLOOD CELL COUNT 4.81 10^6/uL (4.40-6.38); RED CELL DISTRIBUTION WIDTH 14.6 % (11.5-15.2)
[2017-01-12] MEDS ORDERED: NICOTINE POLACRILEX 2 MG GUM B ONE (07:21)
[2017-01-12 07:28] LABS: ANION GAP 18 mEq/L (8-16); CALCIUM 9.7 mg/dL (8.5-10.4); CARBON DIOXIDE 21 mEq/l (22-31); CHLORIDE 105 mEq/L (97-110); CREATININE 0.9 mg/dL (0.7-1.3); ETHANOL SERUM 118 mg/dL (0-10); GLOMERULAR FILTRATION RATE > 60; GLUCOSE 76 mg/dL (70-100); POTASSIUM 4.1 mEq/L (3.5-5.2); SALICYLATE < 1.0 mg/dL (2.0-20.0); SODIUM 144 mEq/L (134-144)
[2017-01-12] MEDS ORDERED: LORazepam 2 MG/ML INJ ONE (10:30)
[2017-01-12] MEDS: NICOTINE POLACRILEX 2 MG GUM B PRN ×2 (10:35→14:01)
[2017-01-12 10:37] VITALS: BP 114/79
[2017-01-12 15:27] VITALS: PULSE 88; RESP 18; O2SAT 95
== END 2017-01-12 15:38 | disposition home or self-care (01) ==
LOC: EDUNIT#
DX: R45.851 Suicidal ideations (principal); F10.230 Alcohol dependence with withdrawal, uncomplicated; F17.200 Nicotine dependence, unspecified, uncomplicated
CPT/HCPCS: 80305; 96374; G0480

== ENCOUNTER 2017-01-12 18:17 | Emergency (ER) | payer MEDICAID ==
[2017-01-12 18:26] VITALS: TEMP 97.5
--- NOTE | 2017-01-12 18:51 | EDPHY ---
H & P Stated Complaint: drank purell Source: Patient Exam Limitations: No limitations - Personal History Current Tetanus Diphtheria and Acellular Pertussis (TDAP): Yes - Medical/Surgical History Hx Asthma: No Hx Chronic Respiratory Disease: No Hx Diabetes: No Hx Cardiac Disease: No Hx Renal Disease: No Hx Cirrhosis: No Hx Alcoholism: Yes Hx HIV/AIDS: No Hx Splenectomy or Spleen Trauma: No Other PMH: PMH: ETOH abuse, anxiety, schizophrenia, T8 fx - Social History Smoking Status: Heavy smoker Time Seen by Provider: 01/12/17 18:42 HPI/ROS: CHIEF COMPLAINT: Drank Purell HISTORY OF PRESENT ILLNESS: The patient presents to the ED after he reportedly drank Purell. The patient was in the emergency department earlier and reportedly was evaluated for possible psychiatric placement. He was refused at multiple facilities including [facility]. 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 The patient reportedly made suicidal statements. The patient does endorse symptoms of depression. The patient denies additional co-ingestion. The patient reports that he has had chronic thoughts of suicidal intermittently typically with thoughts of overdosing. The patient is somewhat evasive about his current suicidality. The patient states that he is certainly depressed surrounding his ongoing alcohol use homelessness. REVIEW OF SYSTEMS: A comprehensive 10 point review of systems is otherwise negative aside from elements mentioned in the history of present illness. (Rigo Benites) - Physical Exam Exam: General Appearance: Alert, no distress Eyes: Pupils equal and round no pallor or injection ENT, Mouth: Mucous membranes moist Respiratory: There are no retractions, lungs are clear to auscultation Cardiovascular: Regular rate and rhythm Gastrointestinal: Abdomen is soft and nontender, no masses, bowel sounds normal Neurological: A&O, normal motor function, normal sensory exam, normal cranial nerves Skin: Warm and dry, no rashes Musculoskeletal: Neck is supple nontender Extremities: symmetrical, full range of motion Psychiatric: Endorses symptoms of depression (Rigo Benites) Constitutional: Initial Vital Signs Temperature (C) 36.4 C 01/12/17 18:24 Heart Rate 102 H 01/12/17 18:24 Respiratory Rate 14 01/12/17 18:24 Blood Pressure 128/68 H 01/12/17 18:24 O2 Sat (%) 95 01/12/17 18:24 O2 Delivery Mode Room Air Allergies/Adverse Reactions: metal Allergy (Uncoded 01/12/17 06:53) Home Medications: Medication Instructions Recorded QUEtiapine FUMARATE [Seroquel 100 100 mg PO HS #30 tab 01/10/17 mg (*)] Medical Decision Making ED Course/Re-evaluation: The patient presents to the ED with alcohol intoxication, depression and vague symptoms of suicidal ideation. The patient had a extensive psychiatric evaluation done earlier today. The patient was noted to have an elevated blood alcohol level detected via breathalyzer upon arrival. It was rechecked the down. I re-evaluated the patient at 10:40 p.m.. The patient continues to endorse symptoms of ongoing depression and requesting assistance in managing his alcohol abuse. The patient does not feel as if he can fully contract for safety although he denies specific suicidal plan. Plan will be for further ED sobering and repeat evaluation by [facility] given the patient's rapid return to the emergency department following discharge earlier today. The patient will be turned over to Dr. Longoria at shift change pending sobriety and psychiatric evaluation. (Rigo Benites) 4:45 a.m.- The patient has been stable throughout my shift. He sobered and was evaluated by a [facility]. Was not deemed acutely suicidal. He was able to contract for safety. Does not meet criteria for inpatient admission. He would like to go to the warming correction currently and get something to eat. He will be discharged. (Amina Longoria) Differential Diagnosis: Differential diagnosis considered includes alcohol intoxication, suicidal ideation, acute schizophrenia, psychosis (Rigo Benites) - Data Points Laboratory Results: 01/12/17 22:50 Urine Opiates Screen NEGATIVE ng/mL ng/mL (NEGATIVE) Urine Barbiturates NEGATIVE ng/mL ng/mL (NEGATIVE) Ur Phencyclidine Scrn NEGATIVE ng/mL ng/mL (NEGATIVE) Ur Amphetamines Screen NEGATIVE ng/mL ng/mL (NEGATIVE) U Benzodiazepines Scrn 389 ng/mL ng/mL (NEGATIVE) Urine Cocaine Screen NEGATIVE ng/mL ng/mL (NEGATIVE) U Marijuana (THC) Screen 768 ng/mL ng/mL (NEGATIVE) Medications Given: Discontinued Medications Lorazepam (Ativan) 1 mg PO EDNOW ONE Stop: 01/13/17 01:27 Last Admin: 01/13/17 01:26 Dose: 1 mg Departure - Departure Disposition: Home, Routine, Self-Care Clinical Impression: Alcoholic intoxication, Severe major depression Condition: Fair Referrals: [facility] [Other] - As per Instructions
[2017-01-13] MEDS ORDERED: LORazepam 1 MG TAB PO ONE ×2 (01:26→04:30)
[2017-01-13] MEDS: NICOTINE POLACRILEX 2 MG GUM B PRN ×2 (01:33→02:50)
[2017-01-13 01:45] VITALS: RESP 16
[2017-01-13 01:58] LABS: PHENCYCLIDINE URINE BCH < 6 ng/ml (NEGATIVE); PHENCYCLIDINE URINE BCH NEGATIVE (NEGATIVE)
[2017-01-13 02:09] LABS: TETRAHYDROCANNABINOL URINE 768 ng/mL (NEGATIVE)
[2017-01-13] MEDS ORDERED: LORazepam 1 MG TAB ONE (04:38)
[2017-01-13 05:02] VITALS: BP 124/76; PULSE 88; O2SAT 94
== END 2017-01-13 05:02 | disposition home or self-care (01) ==
LOC: EDUNIT#
DX: F32.2 Major depressive disorder, single episode, severe without psychotic features (principal); F10.129 Alcohol abuse with intoxication, unspecified; F17.200 Nicotine dependence, unspecified, uncomplicated
CPT/HCPCS: 80307; G0480

== ENCOUNTER 2017-01-16 09:15 | Emergency (ER) | payer MEDICAID ==
[2017-01-16 09:25] VITALS: BP 129/103; PULSE 99; RESP 16; TEMP 97.9; O2SAT 96
[2017-01-16] MEDS ORDERED: MVI WITH VIT K 10 ML, FOLIC ACID 2.5 MG, THIAMINE HCL 100 MG, MAGNESIUM SULFATE 2 GM in... IV ONE (09:54)
--- NOTE | 2017-01-16 10:01 | EDPHY ---
H & P Time Seen by Provider: 01/16/17 09:45 HPI/ROS: This is a 31-year-old male that was brought in by EMS for ETOH intoxication. 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 Patient states he is just tired needs a place to sleep " I am tired of being on the streets" REVIEW OF SYSTEMS: Constitutional: (-)fatigue (+)decrease in appetite Eyes: (-)discharge ENT: (-)sore throat Respiratory: (-)cough (-)shortness of breath Cardiac: (-)chest pain (-)palpitations Gastrointestinal: (-)abdominal pain (-)vomit (-)diarrhea Musculoskeletal: (-)back pain (-)injury Skin: (-)rashes (-)lesions Neurological: (-) headache (-)dizziness Psych: (+)anxiety (-)SI/HI Past Medical/Surgical History: PMH: Anxiety, alcohol dependence, alcohol intoxication, schizophrenia Social History: Patient states alcohol on a daily use anywhere from a pt to 2 pt of vodka, along with hand handle maker on occasion Smoking Status: Heavy smoker Physical Exam: CONSTITUTIONAL: patient appeared well nourished, non-ill appearing. No acute distress. Vital signs as documented. HEENT: NCAT. PERRLA. Oropharynx normal NECK: Supple,FROM RESP: Non-labored resp effort, airway patent, CTAB CARDIAC: RRR w/o murmur, marine. Normal S1/S2 GI: Abd soft NTTP, NEURO: AAOx3 NAD, (-)slurred speech EXTREMITIES: (+)FROM without difficulty. (+)cms intact (-)fasiculations SKIN: (-)rash. (-)acute injury PSYCH: flat affect calm, no distress, patient belligerent using foul language wants to go to [place] for detox Constitutional: Initial Vital Signs Temperature (C) 36.6 C 01/16/17 09:23 Heart Rate 99 01/16/17 09:23 Respiratory Rate 16 01/16/17 09:23 Blood Pressure 129/103 H 01/16/17 09:23 O2 Sat (%) 96 01/16/17 09:23 O2 Delivery Mode Room Air Allergies/Adverse Reactions: metal Allergy (Uncoded 01/12/17 06:53) Home Medications: Medication Instructions Recorded QUEtiapine FUMARATE [Seroquel 100 100 mg PO HS #30 tab 01/10/17 mg (*)] Medical Decision Making ED Course/Re-evaluation: Discussed the plan of care: Multivitamin, folate, thiamine and Ativan 1 mg all meds given PO x 1. Patient states he feels little better, requesting to go to [place] for voluntary detox. Discharge---> stable, spoke with manager of case Maryann patient will be getting a bus pass to take to [facility] detox Differential Diagnosis: Clinical impression ETOH intoxication, other differential diagnosis considered but not limited to alcohol poisoning, drug overdose alcohol withdrawal Critical Care Time: Critical care time: 30min - Data Points Medications Given: Discontinued Medications Folic Acid (Folic Acid) 1 mg PO EDNOW ONE Stop: 01/16/17 10:35 Last Admin: 01/16/17 10:45 Dose: 1 mg Multivitamins 10 ml/ Folic Acid 2.5 mg/ Thiamine HCl 100 mg/ Magnesium Sulfate 2 gm/Sodium Chloride 1,015.5 mls @ 0 mls/hr IV EDNOW ONE PRN Reason: As Directed Stop: 01/16/17 09:55 Last Admin: 01/16/17 11:40 Dose: Not Given Lorazepam (Ativan) 1 mg PO EDNOW ONE Stop: 01/16/17 10:36 Last Admin: 01/16/17 11:36 Dose: 1 mg Multivitamins (Tab-A-Rufino) 1 each PO EDNOW ONE Stop: 01/16/17 10:36 Last Admin: 01/16/17 10:45 Dose: 1 each Thiamine HCl (Vitamin B-1) 100 mg PO EDNOW ONE Stop: 01/16/17 10:36 Last Admin: 01/16/17 10:45 Dose: 100 mg Departure - Departure Disposition: Home, Routine, Self-Care Clinical Impression: Alcohol intoxication Qualifiers: Complication of substance-induced condition: uncomplicated Qualified Code(s): F10.120 - Alcohol abuse with intoxication, uncomplicated Condition: Good Instructions: Alcohol Dependence (ED) Additional Instructions: You have been given a bus pass to [place] for voluntary detox please make sure you go there. Stop drinking hand handle maker Referrals: [facility],. [Clinic] - As per Instructions
[2017-01-16] MEDS ORDERED: FOLIC ACID 1 MG TAB PO ONE (10:34)
[2017-01-16] MEDS ORDERED: MULTIVITAMINS 1 EACH TAB PO ONE (10:35)
[2017-01-16] MEDS ORDERED: THIAMINE HCL 100 MG TAB PO ONE (10:35)
[2017-01-16] MEDS ORDERED: LORazepam 1 MG TAB PO ONE (10:35)
== END 2017-01-16 11:42 | disposition home or self-care (01) ==
LOC: EDUNIT#
DX: F10.120 Alcohol abuse with intoxication, uncomplicated (principal); F17.200 Nicotine dependence, unspecified, uncomplicated
CPT/HCPCS: J3411

== ENCOUNTER 2017-01-16 15:41 | Emergency (ER) | payer MEDICAID ==
--- NOTE | 2017-01-16 16:07 | EDPHY ---
H & P Stated Complaint: ETOH Source: Patient Exam Limitations: No limitations - Personal History Current Tetanus/Diphtheria Vaccine: Unsure Current Tetanus Diphtheria and Acellular Pertussis (TDAP): Unsure - Medical/Surgical History Hx Asthma: No Hx Chronic Respiratory Disease: No Hx Diabetes: No Hx Cardiac Disease: No Hx Renal Disease: No Hx Cirrhosis: No Hx Alcoholism: Yes Hx HIV/AIDS: No Hx Splenectomy or Spleen Trauma: No Other PMH: PMH: ETOH abuse, anxiety, schizophrenia, T8 fx - Social History Smoking Status: Heavy smoker Time Seen by Provider: 01/16/17 16:04 HPI/ROS: CHIEF COMPLAINT: Recurrent alcohol intoxication HISTORY OF PRESENT ILLNESS: The patient presents to the ED with complaints of recurrent alcohol intoxication. He has been seen in the emergency department approximately 13 times this year. The patient was placed on an M1 psychiatric hold today by the police after found him at a grocery store drinking. The patient recently had an inpatient psychiatric hospitalization for alleged suicidal ideation. In reviewing the record of that hospitalization it appears the patient was exhibiting symptoms consistent with malingering. In the ED today, the patient denies acute complaints. He does report that he is tired of life secondary to his profound alcoholism. He denies additional drug ingestion. REVIEW OF SYSTEMS: A comprehensive 10 point review of systems is otherwise negative aside from elements mentioned in the history of present illness. (Rigo Benites) - Physical Exam Exam: General Appearance: Alert, no distress Eyes: Pupils equal and round no pallor or injection ENT, Mouth: Mucous membranes moist Respiratory: There are no retractions, lungs are clear to auscultation Cardiovascular: Regular rate and rhythm Gastrointestinal: Abdomen is soft and nontender, no masses, bowel sounds normal Neurological: A&O, normal motor function, normal sensory exam, normal cranial nerves Skin: Warm and dry, no rashes Musculoskeletal: Neck is supple nontender Extremities: symmetrical, full range of motion (Rigo Benites) Constitutional: Initial Vital Signs Temperature (C) 36.8 C 01/16/17 15:41 Heart Rate 107 H 01/16/17 15:41 Respiratory Rate 16 01/16/17 15:41 Blood Pressure 125/82 H 01/16/17 15:41 O2 Sat (%) 92 01/16/17 15:41 O2 Delivery Mode Room Air Allergies/Adverse Reactions: metal Allergy (Uncoded 01/12/17 06:53) Home Medications: Medication Instructions Recorded QUEtiapine FUMARATE [Seroquel 100 100 mg PO HS #30 tab 01/10/17 mg (*)] Medical Decision Making ED Course/Re-evaluation: The patient's breathalyzer in the ED is 0.335. I reviewed the patient's past medical records including his ED visit from earlier today. I am fairly concerned that the patient is malingering based upon his prior psychiatric hospitalization notes. I re-evaluated the patient at 9:30 p.m.. He continues to endorse suicidal ideation. I am fairly concerned that he is malingering. However he cannot contract for safety. He is stating that he will cut his wrist if he is discharged from the emergency department. The patient did request benzodiazepines which she has not been given. The patient will have laboratories drawn and will be evaluated by the psychiatric team. Patient is turned over Dr. Russell Gil at shift change pending psychiatric evaluation. (Rigo Benites) 2129: I assumed care of this patient from Dr. Benites at shift change. This patient was turned over to me at shift change. After multiple attempts to have a discussion with this patient wall sober he still claims suicidality. We have drawn screening laboratory studies and he will be psychiatrically evaluated I will turn him over to Dr. Sullivan. (Russell Gil) I took over care of this patient at 10:30 p.m.. This patient is on an M1 hold for suicidal ideation and alcohol intoxication. Serum alcohol is 212. Urine drug screen was also positive for benzodiazepines and marijuana. He is awaiting behavioral health evaluation. 7:00 a.m., the patient still awaits behavioral health evaluation. This should happen sometime this morning. Care turned over to Dr. Rock Hodges at this time. (Hilaria Sullivan) Differential Diagnosis: Differential diagnosis considered includes alcohol intoxication, suicidal ideation, homicidal ideation (Rigo Benites) Other Provider: I received sign-out on this patient at 7:00 a.m.. At 11:30 p.m., the mental health cable reeler informed me that they felt the patient could not be evaluated from a psychiatric standpoint secondary to "his hemorrhoids hurt him too much." I recommended that they attempt this again. At 12:50 p.m., I was informed by the mental health cable reeler that his evaluation is complete. They recommend lifting hold in discharging the patient home. (Rock Hodges) - Data Points Laboratory Results: Laboratory Results 01/16/17 22:27 01/16/17 22:27 Medications Given: Discontinued Medications Chlordiazepoxide HCl (Librium) 25 mg PO EDNOW ONE Stop: 01/17/17 10:35 Last Admin: 01/17/17 10:40 Dose: 25 mg Lorazepam (Ativan) 1 mg PO EDNOW ONE Stop: 01/17/17 04:33 Last Admin: 01/17/17 04:35 Dose: 1 mg Nicotine Polacrilex (Nicorette) 2 mg B PRN ONE Stop: 01/17/17 04:34 Last Admin: 01/17/17 04:35 Dose: 2 mg Ondansetron HCl (Zofran Odt) 4 mg PO EDNOW ONE Stop: 01/17/17 04:35 Last Admin: 01/17/17 04:34 Dose: 4 mg Departure - Departure Disposition: Home, Routine, Self-Care Clinical Impression: Situational depression Alcohol dependence Qualifiers: Substance use status: with intoxication Complication of substance-induced condition: uncomplicated Qualified Code(s): F10.220 - Alcohol dependence with intoxication, uncomplicated Condition: Good Instructions: Suicide Prevention for Adults (ED) Referrals: Patient,NotPresent [Unknown] - As per Instructions
[2017-01-16 20:42] VITALS: O2SAT 95
[2017-01-16 22:31] LABS: % IMMATURE GRANULYOCYTES 0.2 % (0.0-1.1); ABSOLUTE IMMATURE GRANULOCYTES 0.02 10^3/uL (0.00-0.10); ADD DIFF? NO; ADD MORPH? NO; ADD SCAN? NO; ATYPICAL LYMPHOCYTE FLAG 20 (0-99); FRAGMENT RBC FLAG 0 (0-99); HEMATOCRIT 45.4 % (40.0-51.0); HEMOGLOBIN 16.1 g/dL (13.7-17.5); LEFT SHIFT FLG 0 (0-99); LIPEMIA HEMOLYSIS FLAG 90 (0-99); MEAN CELL HEMOGLOBIN 33.7 pg (27.9-34.1); MEAN CELL HEMOGLOBIN CONCENTR. 35.5 g/dL (32.4-36.7); MEAN PLATELET VOLUME 8.9 fL (8.7-11.7); PLATELET CLUMPS FLAG 0 (0-99); PLATELET COUNT 303 10^3/uL (150-400); RED BLOOD CELL COUNT 4.78 10^6/uL (4.40-6.38); RED CELL DISTRIBUTION WIDTH 14.6 % (11.5-15.2)
[2017-01-16 22:38] LABS: ANION GAP 14 mEq/L (8-16); CALCIUM 8.7 mg/dL (8.5-10.4); CARBON DIOXIDE 24 mEq/l (22-31); CHLORIDE 99 mEq/L (97-110); CREATININE 0.8 mg/dL (0.7-1.3); ETHANOL SERUM 212 mg/dL (0-10); GLOMERULAR FILTRATION RATE > 60; GLUCOSE 66 mg/dL (70-100); POTASSIUM 3.9 mEq/L (3.5-5.2); SODIUM 137 mEq/L (134-144)
[2017-01-17] MEDS: NICOTINE POLACRILEX 2 MG GUM B PRN ×3 (00:05→10:48)
[2017-01-17] MEDS ORDERED: LORazepam 1 MG TAB ONE (04:27)
[2017-01-17] MEDS ORDERED: ONDANSETRON DISINTEGRATING 4 MG TAB ONE (04:27)
[2017-01-17] MEDS ORDERED: LORazepam 1 MG TAB PO ONE (04:32)
[2017-01-17] MEDS ORDERED: NICOTINE POLACRILEX 2 MG GUM B ONE ×2 (04:33)
[2017-01-17] MEDS ORDERED: ONDANSETRON DISINTEGRATING 4 MG TAB PO ONE (04:34)
[2017-01-17 08:23] VITALS: BP 135/84; PULSE 93; RESP 16; TEMP 98.4
[2017-01-17] MEDS ORDERED: chlordiazePOXIDE 25 MG CAP PO ONE (10:34)
== END 2017-01-17 14:07 | disposition home or self-care (01) ==
LOC: EDUNIT#
DX: F43.21 Adjustment disorder with depressed mood (principal); F10.220 Alcohol dependence with intoxication, uncomplicated; F17.200 Nicotine dependence, unspecified, uncomplicated
CPT/HCPCS: 80305; G0480

== ENCOUNTER 2017-01-23 15:25 | Emergency (ER) | payer MEDICAID ==
--- NOTE | 2017-01-23 15:38 | EDPHY ---
H & P Time Seen by Provider: 01/23/17 15:34 HPI/ROS: CHIEF COMPLAINT: Alcohol abuse, suicidality HISTORY OF PRESENT ILLNESS: The patient is a 31-year-old man well known to our department and myself. He is here frequently for alcohol abuse and suicidal ideation while intoxicated. 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 He even tried to steal at as he is leaving the hospital. His typical pattern is to stay here and claim suicidality until he is evaluated by Mental Health and that he abruptly leaves and refuses everything or claims other medical conditions prohibiting him from psychiatric evaluation. He is currently at his baseline. No signs of injury or reports. He was found on the sidewalk drinking hand quote clerk today. He is not on a psychiatric hold. REVIEW OF SYSTEMS: Not cooperative EXAM: GENERAL: Disheveled well-nourished and in no acute distress. HEAD: Atraumatic, normocephalic. EYES: Pupils equal round and reactive to light, extraocular movements intact, sclera anicteric, conjunctiva are normal. ENT: TMs normal, nares patent, oropharynx clear without exudates. Moist mucous membranes. NECK: Normal range of motion, supple without lymphadenopathy or JVD. LUNGS: Breath sounds clear to auscultation bilaterally and equal. No wheezes rales or rhonchi. HEART: Regular rate and rhythm without murmurs, rubs or gallops. ABDOMEN: Soft, nontender, normoactive bowel sounds. No guarding, no rebound. No masses appreciated. BACK: No CVA tenderness, no spinal tenderness, step-offs or deformities EXTREMITIES: Normal range of motion, no pitting or edema. No clubbing or cyanosis. NEUROLOGICAL: Cranial nerves II through XII grossly intact. Normal speech, normal gait. 5/5 strength, normal movement in all extremities, normal sensation PSYCH: Originally endorse suicidal ideation now denies. Admits to being here for secondary intentions. SKIN: Warm, dry, normal turgor, no visible rashes or lesions. Source: Patient, EMS, Old records Exam Limitations: No limitations - Medical/Surgical History Hx Asthma: No Hx Chronic Respiratory Disease: No Hx Diabetes: No Hx Cardiac Disease: No Hx Renal Disease: No Hx Cirrhosis: No Hx Alcoholism: Yes Hx HIV/AIDS: No Hx Splenectomy or Spleen Trauma: No Other PMH: PMH: ETOH abuse, anxiety, schizophrenia, T8 fx - Family History Significant Family History: Hypertension - Social History Smoking Status: Heavy smoker Alcohol Use: Heavy Drug Use: Marijuana Constitutional: Initial Vital Signs Temperature (C) 36.7 C 01/23/17 16:01 Heart Rate 119 H 01/23/17 16:01 Respiratory Rate 16 01/23/17 16:01 Blood Pressure 121/78 H 01/23/17 16:01 O2 Sat (%) 93 01/23/17 16:01 O2 Delivery Mode Room Air Allergies/Adverse Reactions: metal Allergy (Uncoded 01/25/17 11:00) Home Medications: Medication Instructions Recorded Amoxicillin/Clavulanate Pot 875 mg PO BID #14 tab 01/25/17 [Augmentin 875 mg tab] Hydrocortisone Acetate [Anucort-Hc] 25 mg RC Q12 PRN #10 supp.rect 01/25/17 Medical Decision Making ED Course/Re-evaluation: Patient is clearly malingering. He is here for food and penitentiary and to steal more hand quote clerk. He is on an are cold but is not allowed there. Police stated that they would like to take him to alf. I will discharge him at this time. He is not suicidal this time. He has climbed to be so many times in the past although this has typically been diagnosed as malingering by mental health professionals. Differential Diagnosis: Partial list of the Differential diagnosis considered include but were not limited to; intoxication, malingering, anxiety and although unlikely based on the history and physical exam, I also considered head injury, infection. Departure - Departure Disposition: Home, Routine, Self-Care Clinical Impression: Malingering Alcoholic intoxication Qualifiers: Complication of substance-induced condition: with unspecified complication Qualified Code(s): F10.129 - Alcohol abuse with intoxication, unspecified Condition: Fair Instructions: Abuse of Alcohol (ED) Referrals: Ronnie Gutierrez MD [Medical Doctor] - As per Instructions
[2017-01-23 16:05] VITALS: BP 121/78; PULSE 119; RESP 16; TEMP 98.1; O2SAT 93
== END 2017-01-23 16:10 | disposition home or self-care (01) ==
LOC: EDUNIT#
DX: F10.129 Alcohol abuse with intoxication, unspecified (principal); F17.200 Nicotine dependence, unspecified, uncomplicated; Z76.5 Malingerer [conscious simulation]

== ENCOUNTER 2017-01-25 10:44 | Emergency (ER) | payer MEDICAID ==
[2017-01-25 11:04] VITALS: PULSE 96; RESP 18; O2SAT 95
--- NOTE | 2017-01-25 12:01 | EDPHY ---
H & P Time Seen by Provider: 01/25/17 11:34 HPI/ROS: CHIEF COMPLAINT: Rectal pain HISTORY OF PRESENT ILLNESS: Patient states he said rectal pain for the past 3 days. He has a known pilonidal cyst that was drained 2 years ago at [facility]. Says is hemorrhoids are also painful. Denies rectal bleeding or abdominal pain or fever or foreign body. 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 He told his father earlier today that he was suicidal but currently denies that to me. He did not have a plan or specific intent according to his father A comprehensive 10 point review of systems is otherwise negative aside from elements mentioned in the history of present illness. PAST MEDICAL HISTORY: Pilonidal cyst, schizophrenia, T8 fracture, alcoholism and anxiety Social history: Here with his father General Appearance: Alert and conversant, cooperative. Eyes: No scleral icterus. ENT, Mouth: Normal mucous membranes. Respiratory: Normal respiratory effort, breath sounds equal, lungs are clear to auscultation. Cardiovascular: Regular rate and rhythm. Gastrointestinal: Abdomen is soft and non tender. Rectal shows slightly swollen and tender pilonidal area on the right just superior to the anus. No perirectal induration or redness or tenderness. He does have some external hemorrhoids but they are not thrombosed and there is no active bleeding. Neurological: Alert and oriented x3. Normally conversant. Face symmetric, normal movement and sensation in all extremities. Skin: Warm and dry, no rashes. Musculoskeletal: No peripheral edema and no joint swelling. Psychiatric: Not agitated. Patient denies suicidal ideation or intent on multiple questionings by myself during the interview. Emergency Department course/MDM: Patient had ChloraPrep and 1% lidocaine with epinephrine anesthesia and incision of the most tender part of the pilonidal region with 11 blade but no pus was returned. Plan for oral Augmentin and Anusol hydrocortisone suppositories. Patient declined psychiatric evaluation. I do not think he currently meets criteria for a 72 hour mental health hold. Smoking Status: Heavy smoker Constitutional: Initial Vital Signs Temperature (C) 36.3 C 01/25/17 11:01 Heart Rate 96 01/25/17 11:01 Respiratory Rate 18 01/25/17 11:01 Blood Pressure 162/111 H 01/25/17 11:01 O2 Sat (%) 95 01/25/17 11:01 O2 Delivery Mode Room Air Allergies/Adverse Reactions: metal Allergy (Uncoded 01/25/17 11:00) Home Medications: Medication Instructions Recorded Amoxicillin/Clavulanate Pot 875 mg PO BID #14 tab 01/25/17 [Augmentin 875 mg tab] Hydrocortisone Acetate [Anucort-Hc] 25 mg RC Q12 PRN #10 supp.rect 01/25/17 Medical Decision Making Differential Diagnosis: I do not think he has lower GI bleed, perirectal abscess or cellulitis, most likely has and superficially infected pilonidal cyst. Doubt overdose or active suicidality. Departure - Departure Disposition: Home, Routine, Self-Care Clinical Impression: Infected pilonidal cyst, Alcoholism Condition: Good Instructions: Pilonidal Cyst (ED) Referrals: Scotty Seay MD [Medical Doctor] - As per Instructions Prescriptions: Amoxicillin/Clavulanate Pot [Augmentin 875 mg tab] 875 mg PO BID #14 tab Hydrocortisone Acetate [Anucort-Hc] 25 mg RC Q12 PRN #10 supp.rect PRN Reason: hemorrhoid pain
[2017-01-25 12:34] VITALS: BP 118/68; TEMP 98.4
== END 2017-01-25 12:22 | disposition home or self-care (01) ==
DX: L05.91 Pilonidal cyst without abscess (principal); F10.20 Alcohol dependence, uncomplicated; F17.200 Nicotine dependence, unspecified, uncomplicated

== ENCOUNTER 2017-06-14 05:20 | Emergency (ER) | payer MEDICAID ==
[2017-06-14] MEDS ORDERED: LORazepam 2 MG/ML INJ IVP ONE ×2 (05:23→05:50)
[2017-06-14] MEDS ORDERED: NS 1,000 ML IV ONE ×2 (05:50→06:20)
[2017-06-14 05:52] VITALS: O2SAT 96
--- NOTE | 2017-06-14 06:01 | EDPHY ---
H & P Stated Complaint: ETOH withdrawal, shaky, dizzy, nauseated Time Seen by Provider: 06/14/17 05:23 HPI/ROS: HPI The patient presents with concern for alcohol withdrawal with his last drink being about 3 hours ago. He is feeling shaky, anxious, generally unwell. All of these symptoms started slowly but have gotten progressively worse since the onset. He called 911. He has been on a drinking binge for the last 4 days, drinking quite heavily. 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 Does admit to using methamphetamine as well. He says he is says he has not been eating well and at about 2 o'clock this morning he began vomiting nonbloody nonbilious emesis. He has returned to [place] after being in [place] for drug and alcohol rehab. REVIEW OF SYSTEMS Constitutional: No fever, no chills. Eyes: No discharge. ENT: No sore throat. Cardiovascular: No chest pain, no palpitations. Respiratory: No cough, no shortness of breath. Gastrointestinal: No abdominal pain, positive for vomiting. Genitourinary: No hematuria. Musculoskeletal: No back pain. Skin: No rashes. Neurological: No headache. PMHx: Schizophrenia per his report Soc Hx: Alcohol abuse, homeless PHYSICAL General Appearance: Alert, no distress Eyes: Pupils equal and round no pallor or injection ENT, Mouth: Mucous membranes dry Respiratory: There are no retractions, lungs are clear to auscultation Cardiovascular: Tachycardic, mildly tremulous Gastrointestinal: Abdomen is soft and non-tender, no masses, bowel sounds normal Neurological: A&O, moves all extremities Skin: Warm and dry, no rashes Musculoskeletal: Neck is supple non tender Extremities: symmetrical, full range of motion Psychiatric: Patient is oriented X 3, there is no agitation Source: Patient, EMS, Old records Exam Limitations: No limitations - Personal History Current Tetanus/Diphtheria Vaccine: Yes Tetanus Vaccine Date: 2013 - Medical/Surgical History Hx Asthma: No Hx Chronic Respiratory Disease: No Hx Diabetes: No Hx Cardiac Disease: No Hx Renal Disease: No Hx Cirrhosis: No Hx Alcoholism: Yes Hx HIV/AIDS: No Hx Splenectomy or Spleen Trauma: No Other PMH: PMH: ETOH abuse, anxiety, schizophrenia, T8 fx, TBI - Social History Smoking Status: Heavy smoker Constitutional: Initial Vital Signs Temperature (C) 36.8 C 06/14/17 05:20 Heart Rate 109 H 06/14/17 05:20 Respiratory Rate 16 06/14/17 05:20 Blood Pressure 122/102 H 06/14/17 05:20 O2 Sat (%) 96 06/14/17 05:20 O2 Delivery Mode Room Air Allergies/Adverse Reactions: metal Allergy (Uncoded 06/14/17 05:57) Home Medications: Medication Instructions Recorded ARIPiprazole [Abilifmalissa Maintena] 300 mg IM 06/14/17 Medical Decision Making Differential Diagnosis: This is a 32-year-old man with longstanding history of alcohol abuse, mental health disease including possible schizophrenia who presents brought in by ambulance for concern for alcohol withdrawal, last drink 3 hours ago after a 4 day drinking binge. He complains of feeling tremulous and anxious and just generally unwell. He denies any suicidal ideation. He is asking for Ativan. On exam he is slightly tachycardic and mildly tremulous. His neurologic exam is nonfocal. Differential diagnosis includes alcohol withdrawal, methamphetamine intoxication , dehydration, pancreatitis, hepatitis. In the emergency room, the patient was given IV fluids and was able to tolerate fluids by mouth. He was given Ativan a total of 2 mg for his withdrawal symptoms. Basic labs were checked. These were normal except for mild anion gap acidosis likely related to alcoholic ketoacidosis. Because of this he was given 2 L of IV fluid and was able to drink juice. He states [facility] I will make sure he is welcome there and discharge him with a Librium prepack. He had improvement of his tachycardia an tremor while here. - Data Points Laboratory Results: Laboratory Results 06/14/17 05:15 06/14/17 05:15 06/14/17 06/14/17 05:15 05:15 WBC 11.68 10^3/uL H 10^3/uL (3.80-9.50) RBC 4.75 10^6/uL 10^6/uL (4.40-6.38) Hgb 15.3 g/dL g/dL (13.7-17.5) Hct 43.1 % % (40.0-51.0) MCV 90.7 fL fL (81.5-99.8) MCH 32.2 pg pg (27.9-34.1) MCHC 35.5 g/dL g/dL (32.4-36.7) RDW 12.7 % % (11.5-15.2) Plt Count 294 10^3/uL 10^3/uL (150-400) MPV 9.5 fL fL (8.7-11.7) Neut % (Auto) 71.4 % % (39.3-74.2) Lymph % (Auto) 18.8 % % (15.0-45.0) Park % (Auto) 8.1 % % (4.5-13.0) Eos % (Auto) 0.3 % L % (0.6-7.6) Baso % (Auto) 0.9 % % (0.3-1.7) Nucleat RBC Rel Count 0.0 % % (0.0-0.2) Absolute Neuts (auto) 8.34 10^3/uL H 10^3/uL (1.70-6.50) Absolute Lymphs (auto) 2.19 10^3/uL 10^3/uL (1.00-3.00) Absolute Monos (auto) 0.95 10^3/uL H 10^3/uL (0.30-0.80) Absolute Eos (auto) 0.04 10^3/uL 10^3/uL (0.03-0.40) Absolute Basos (auto) 0.10 10^3/uL 10^3/uL (0.02-0.10) Absolute Nucleated RBC 0.00 10^3/uL 10^3/uL (0-0.01) Immature Gran % 0.5 % % (0.0-1.1) Immature Gran # 0.06 10^3/uL 10^3/uL (0.00-0.10) Sodium 151 mEq/L H mEq/L (134-144) Potassium 3.6 mEq/L mEq/L (3.5-5.2) Chloride 110 mEq/L mEq/L (97-110) Carbon Dioxide 20 mEq/l L mEq/l (22-31) Anion Gap 21 mEq/L H mEq/L (8-16) BUN 13 mg/dL mg/dL (7-23) Creatinine 0.9 mg/dL mg/dL (0.7-1.3) Estimated GFR > 60 Glucose 89 mg/dL mg/dL (70-100) Calcium 9.5 mg/dL mg/dL (8.5-10.4) Total Bilirubin 0.6 mg/dL mg/dL (0.1-1.4) AST 46 IU/L IU/L (17-59) ALT 39 IU/L IU/L (21-72) Alkaline Phosphatase 81 IU/L IU/L (38-126) Total Protein 7.5 g/dL g/dL (6.3-8.2) Albumin 4.9 g/dL g/dL (3.5-5.0) Lipase 71.0 IU/L IU/L (23-300) Ethyl Alcohol 147 mg/dL H mg/dL (0-10) Medications Given: Discontinued Medications Sodium Chloride (Ns) 1,000 mls @ 0 mls/hr IV ONCE ONE; Wide Open PRN Reason: Protocol Stop: 06/14/17 05:51 Last Admin: 06/14/17 05:59 Dose: 1,000 mls Sodium Chloride (Ns) 1,000 mls @ 0 mls/hr IV ONCE ONE; Wide Open PRN Reason: Protocol Stop: 06/14/17 06:21 Last Admin: 06/14/17 06:37 Dose: 1,000 mls Lorazepam (Ativan Injection) 1 mg IVP EDNOW ONE Stop: 06/14/17 05:24 Last Admin: 06/14/17 05:34 Dose: 1 mg Lorazepam (Ativan Injection) 1 mg IVP EDNOW ONE Stop: 06/14/17 05:51 Last Admin: 06/14/17 05:59 Dose: 1 mg Departure - Departure Disposition: Home, Routine, Self-Care Clinical Impression: Alcohol withdrawal Qualifiers: Complication of substance-induced condition: uncomplicated Qualified Code(s): F10.230 - Alcohol dependence with withdrawal, uncomplicated Vomiting Qualifiers: Vomiting type: unspecified Vomiting Intractability: non-intractable Nausea presence: with nausea Qualified Code(s): R11.2 - Nausea with vomiting, unspecified Condition: Good Instructions: Alcohol Withdrawal (ED) Referrals: [facility],. [Clinic] - As per Instructions [facility] [Outside] - As per Instructions
[2017-06-14 06:07] LABS: ALANINE AMINOTRANSFERASE 39 IU/L (21-72); ALBUMIN 4.9 g/dL (3.5-5.0); ALKALINE PHOSPHATASE 81 IU/L (38-126); ANION GAP 21 mEq/L (8-16); ASPARTATE AMINOTRANSFERASE 46 IU/L (17-59); BILIRUBIN,TOTAL 0.6 mg/dL (0.1-1.4); CALCIUM 9.5 mg/dL (8.5-10.4); CARBON DIOXIDE 20 mEq/l (22-31); CHLORIDE 110 mEq/L (97-110); CREATININE 0.9 mg/dL (0.7-1.3); ETHANOL SERUM 147 mg/dL (0-10); GLOMERULAR FILTRATION RATE > 60; GLUCOSE 89 mg/dL (70-100); POTASSIUM 3.6 mEq/L (3.5-5.2); SODIUM 151 mEq/L (134-144); TOTAL PROTEIN 7.5 g/dL (6.3-8.2)
[2017-06-14 06:10] LABS: % IMMATURE GRANULYOCYTES 0.5 % (0.0-1.1); ABSOLUTE IMMATURE GRANULOCYTES 0.06 10^3/uL (0.00-0.10); ADD DIFF? NO; ADD MORPH? NO; ADD SCAN? NO; ATYPICAL LYMPHOCYTE FLAG 0 (0-99); FRAGMENT RBC FLAG 0 (0-99); HEMATOCRIT 43.1 % (40.0-51.0); HEMOGLOBIN 15.3 g/dL (13.7-17.5); LEFT SHIFT FLG 0 (0-99); LIPEMIA HEMOLYSIS FLAG 90 (0-99); MEAN CELL HEMOGLOBIN 32.2 pg (27.9-34.1); MEAN CELL HEMOGLOBIN CONCENTR. 35.5 g/dL (32.4-36.7); MEAN CELL VOLUME 90.7 fL (81.5-99.8); MEAN PLATELET VOLUME 9.5 fL (8.7-11.7); PLATELET CLUMPS FLAG 0 (0-99); PLATELET COUNT 294 10^3/uL (150-400); RED BLOOD CELL COUNT 4.75 10^6/uL (4.40-6.38); RED CELL DISTRIBUTION WIDTH 12.7 % (11.5-15.2)
[2017-06-14] MEDS ORDERED: CHLORDIAZEPOXIDE 25MG PREPK#6 BTL TAKEHOME ONE (06:56)
[2017-06-14] MEDS ORDERED: chlordiazePOXIDE 25 MG CAP PO ONE (06:56)
[2017-06-14 07:28] VITALS: BP 119/69; PULSE 105; RESP 18; TEMP 98.4
== END 2017-06-14 07:25 | disposition home or self-care (01) ==
LOC: EDUNIT#
DX: F10.230 Alcohol dependence with withdrawal, uncomplicated (principal); R11.2 Nausea with vomiting, unspecified; E86.9 Volume depletion, unspecified; F17.200 Nicotine dependence, unspecified, uncomplicated
CPT/HCPCS: 96374; G0480; J2060

== ENCOUNTER 2017-06-17 19:44 | Emergency (ER) | payer MEDICAID ==
--- NOTE | 2017-06-17 19:49 | EDPHY ---
H & P Time Seen by Provider: 06/17/17 19:46 HPI/ROS: CHIEF COMPLAINT: Suspected alcohol intoxication HISTORY OF PRESENT ILLNESS: 32-year-old homeless male [place] by ambulance [place] No trauma no fall. He admits to alcohol use. No suicidal or homicidal ideation. There are no structures of height nearby. No injury. No complaints of pain or discomfort. No hallucination. No seizure. The [facility] is [facility] hold PRIMARY CARE PROVIDER: REVIEW OF SYSTEMS: A ten point review of systems was performed and is negative with the exception of the items mentioned in the HPI PAST MEDICAL & SURGICAL HISTORY: No pertinent medical or surgical history SOCIAL HISTORY: Admits to positive alcohol use. Homeless. PHYSICAL EXAM (Prior to examination, patient consented to physical exam, hands were washed and my usual and customary physical exam procedures followed) 1) GENERAL: Well-developed, well-nourished, alert and oriented. Smells of alcohol. 2) HEAD: Normocephalic, atraumatic 3) HEENT: Pupils equal, round, reactive to light bilaterally. Sclera anicteric. No raccoon eyes no Hoskins sign. No rhinorrhea. No otorrhea. No facial injury. No hemotympanum. Nasopharynx, oropharynx, clear, no lesions. Ears bilaterally with normal tympanic membranes. 4) NECK: Full range of motion, no meningeal signs. 5) LUNGS: Clear auscultation bilaterally, no wheezes, no rhonchi, no retractions. 6) HEART: Regular rate and rhythm, no murmur, no heave, no gallop. 7) ABDOMEN: No guarding, no rebound, no focal tenderness, 8) MUSCULOSKELETAL: Moving all extremities, no focal areas of tenderness, no obvious trauma. No peripheral edema or discoloration. 9) BACK: no obvious trauma, no visual or palpable abnormality. 10) SKIN: No rash, no petechiae. 11) Psychiatric: Patient is oriented X 3, there is no agitation. DIFFERENTIAL DIAGNOSIS: In no particular orderincluding but not limited to hypoglycemia, infectious process, electrolyte abnormality, head injury and intoxicants. - Personal History Tetanus Vaccine Date: 2013 - Medical/Surgical History Hx Asthma: No Hx Chronic Respiratory Disease: No Hx Diabetes: No Hx Cardiac Disease: No Hx Renal Disease: No Hx Cirrhosis: No Hx Alcoholism: Yes Hx HIV/AIDS: No Hx Splenectomy or Spleen Trauma: No Other PMH: PMH: ETOH abuse, anxiety, schizophrenia, T8 fx, TBI - Social History Smoking Status: Heavy smoker Allergies/Adverse Reactions: metal Allergy (Uncoded 06/14/17 05:57) Home Medications: Medication Instructions Recorded ARIPiprazole [Abilifmalissa Maintena] 300 mg IM 06/14/17 Departure - Departure Disposition: Home, Routine, Self-Care Clinical Impression: Alcoholic intoxication Qualifiers: Complication of substance-induced condition: uncomplicated Qualified Code(s): F10.920 - Alcohol use, unspecified with intoxication, uncomplicated Condition: Good Instructions: Alcohol Intoxication (ED) Referrals: [facility] [Outside] - 1 day without fail
[2017-06-17 19:52] VITALS: TEMP 98.2
[2017-06-17 20:40] LABS: ETHANOL SERUM 366 mg/dL (0-10)
[2017-06-17] MEDS ORDERED: CHLORDIAZEPOXIDE 25MG PREPK#6 BTL TAKEHOME ONE (20:59)
[2017-06-17 21:14] VITALS: BP 127/83; PULSE 100; RESP 18; O2SAT 95
== END 2017-06-17 21:14 | disposition home or self-care (01) ==
LOC: EDUNIT#
DX: F10.920 Alcohol use, unspecified with intoxication, uncomplicated (principal); F17.200 Nicotine dependence, unspecified, uncomplicated
CPT/HCPCS: G0480

== ENCOUNTER 2017-06-29 07:10 | Emergency (ER) | payer MEDICAID ==
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
[2017-06-29 07:18] VITALS: RESP 16
[2017-06-29] MEDS ORDERED: chlordiazePOXIDE 25 MG CAP PO ONE (07:27)
[2017-06-29] MEDS ORDERED: LORazepam 2 MG/ML INJ IVP ONE (07:27)
[2017-06-29 09:39] VITALS: BP 149/88; PULSE 98; TEMP 97.9; O2SAT 96
== END 2017-06-29 09:45 | disposition home or self-care (01) ==
LOC: EDUNIT#
DX: F10.920 Alcohol use, unspecified with intoxication, uncomplicated (principal); F17.210 Nicotine dependence, cigarettes, uncomplicated
CPT/HCPCS: 96374; J2060

== ENCOUNTER 2017-08-31 22:11 | Inpatient (IN) | payer MEDICAID, OTHER ==
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
[2017-08-31 22:39] LABS: ANION GAP 23 mEq/L (8-16); CARBON DIOXIDE 19 mEq/l (22-31); CHLORIDE 104 mEq/L (97-110); CREATININE 0.8 mg/dL (0.7-1.3); GLOMERULAR FILTRATION RATE > 60; GLUCOSE 75 mg/dL (70-100); POTASSIUM 3.4 mEq/L (3.5-5.2); SODIUM 146 mEq/L (134-144)
[2017-08-31 22:48] LABS: % IMMATURE GRANULYOCYTES 0.4 % (0.0-1.1); ABSOLUTE IMMATURE GRANULOCYTES 0.03 10^3/uL (0.00-0.10); ADD DIFF? NO; ADD MORPH? NO; ADD SCAN? NO; ATYPICAL LYMPHOCYTE FLAG 40 (0-99); FRAGMENT RBC FLAG 0 (0-99); HEMATOCRIT 44.2 % (40.0-51.0); HEMOGLOBIN 15.8 g/dL (13.7-17.5); LEFT SHIFT FLG 0 (0-99); LIPEMIA HEMOLYSIS FLAG 90 (0-99); MEAN CELL HEMOGLOBIN 34.8 pg (27.9-34.1); MEAN CELL HEMOGLOBIN CONCENTR. 35.7 g/dL (32.4-36.7); MEAN CELL VOLUME 97.4 fL (81.5-99.8); MEAN PLATELET VOLUME 9.3 fL (8.7-11.7); PLATELET CLUMPS FLAG 0 (0-99); PLATELET COUNT 276 10^3/uL (150-400); RED BLOOD CELL COUNT 4.54 10^6/uL (4.40-6.38); RED CELL DISTRIBUTION WIDTH 15.1 % (11.5-15.2)
[2017-08-31 22:49] LABS: ETHANOL SERUM 307 mg/dL (0-10)
[2017-08-31] MEDS ORDERED: LORazepam 1 MG TAB ONE (23:19)
[2017-08-31] MEDS ORDERED: LORazepam 1 MG TAB PO ONE (23:20)
[2017-09-01] MEDS ORDERED: LORazepam 1 MG TAB PO ONE ×2 (10:52→15:47)
[2017-09-01] MEDS ORDERED: NICOTINE 14 MG/24 HR PATCH TD ONE (15:47)
[2017-09-01] MEDS ORDERED: chlordiazePOXIDE 25 MG CAP PO ONE (23:48)
[2017-09-01] MEDS ORDERED: chlordiazePOXIDE 25 MG CAP ONE (23:49)
[2017-09-02] MEDS ORDERED: chlordiazePOXIDE 25 MG CAP PO ONE ×2 (09:51→14:59)
[2017-09-02] MEDS ORDERED: LORazepam 1 MG TAB PO ONE (19:15)
[2017-09-02] MEDS ORDERED: NICOTINE 14 MG/24 HR PATCH TD ONE (20:28)
[2017-09-02] MEDS ORDERED: NICOTINE 21 MG/24 HR PATCH TD ONE ×2 (21:13→21:15)
[2017-09-02 22:39] LABS: ANION GAP 10 mEq/L (8-16); CALCIUM 9.3 mg/dL (8.5-10.4); CARBON DIOXIDE 27 mEq/l (22-31); CHLORIDE 100 mEq/L (97-110); CREATININE 0.8 mg/dL (0.7-1.3); GLOMERULAR FILTRATION RATE > 60; GLUCOSE 102 mg/dL (70-100); POTASSIUM 3.5 mEq/L (3.5-5.2); SODIUM 137 mEq/L (134-144)
[2017-09-03] MEDS ORDERED: IBUPROFEN 200 MG TAB PO PRN (01:02)
[2017-09-03] MEDS ORDERED: THIAMINE HCL 100 MG TAB (ONCE) PO ONE (01:02)
[2017-09-03] MEDS ORDERED: PROMETHAZINE HCL 25 MG SUPPR PR PRN (01:02)
[2017-09-03] MEDS ORDERED: MAG HYDROX/AL HYDROX/SIMETH 30 ML UDCUP PO PRN (01:02)
[2017-09-03] MEDS ORDERED: PROMETHAZINE HCL 25 MG TAB PO PRN (01:02)
[2017-09-03] MEDS ORDERED: MAGNESIUM HYDROXIDE 30 ML UDCUP PO PRN (01:02)
[2017-09-03] MEDS ORDERED: THIAMINE HCL 200 MG/2 ML VIAL IM (ONCE) IM ONE (01:02)
[2017-09-03] MEDS: LORazepam 0.5 MG TAB PO PRN ×2 (01:15→19:44)
[2017-09-03] MEDS ORDERED: LORazepam 1 MG TAB ONE (12:46)
[2017-09-03] MEDS ORDERED: LORazepam 1 MG TAB PO ONE (13:00)
[2017-09-03] MEDS: THIAMINE HCL 100 MG TAB (DAILY X 3) PO SCH (15:37)
[2017-09-03] MEDS: FOLIC ACID 1 MG TAB PO SCH (15:37)
[2017-09-03] MEDS: MULTIVITAMINS 1 EACH TAB PO SCH (15:37)
[2017-09-03] MEDS: chlordiazePOXIDE 25 MG CAP PO PRN ×2 (17:29→20:55)
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
[2017-09-03] MEDS: NICOTINE POLACRILEX 2 MG GUM B PRN ×2 (18:43→21:14)
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
[2017-09-04] MEDS: MELATONIN 3 MG TAB PO PRN ×2 (00:10→21:08)
[2017-09-04] MEDS: LORazepam 0.5 MG TAB PO PRN ×2 (10:53→17:01)
[2017-09-04] MEDS: FOLIC ACID 1 MG TAB PO SCH (10:53)
[2017-09-04] MEDS: MULTIVITAMINS 1 EACH TAB PO SCH (10:53)
[2017-09-04] MEDS: THIAMINE HCL 100 MG TAB (DAILY X 3) PO SCH (10:54)
[2017-09-04] MEDS: NICOTINE 21 MG/24 HR PATCH TD SCH (10:55)
[2017-09-04] MEDS: chlordiazePOXIDE 25 MG CAP PO SCH ×2 (11:05→21:08)
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
[2017-09-05] MEDS: THIAMINE HCL 100 MG TAB (DAILY X 3) PO SCH (08:58)
[2017-09-05] MEDS: MULTIVITAMINS 1 EACH TAB PO SCH (08:58)
[2017-09-05] MEDS: LORazepam 0.5 MG TAB PO PRN ×2 (08:58→16:34)
[2017-09-05] MEDS: FOLIC ACID 1 MG TAB PO SCH (08:58)
[2017-09-05] MEDS: NICOTINE 21 MG/24 HR PATCH TD SCH (08:59)
[2017-09-05] MEDS: chlordiazePOXIDE 25 MG CAP PO SCH ×2 (08:59→20:59)
--- NOTE | 2017-09-05 18:56 | SOAPPROG ---
SOAP Progress Note Assessment/Plan: Assessment: Plan: 09/05/17 18:56 Improving rapidly with no specific treatment. No evidence of withdrawl. CCM. Subjective: Pt seen, discussed with staff. Reports feeling "a lot better." No behavioral issues. Told staff earlier that he had "a major setback" due to "bad news" but told me that this was resolved when his father agreed to help him buy a car. Compliant with meds. Objective: Vital Signs Temp Pulse Resp BP Pulse Ox 37 C 92 20 131/79 H 95 09/05/17 16:00 09/05/17 16:00 09/05/17 16:00 09/05/17 16:00 09/05/17 16:00 MSE: Calm, coop. Affect is euthymic, stable, approp. Mood is "good." TP linear. TC reveals no psychosis. Denies current SI/HI/. ICD10 Worksheet Patient Problems: Problems Problem Status Onset Alcoholic intoxication Acute Situational depression Acute Alcohol withdrawal Acute Suicidal ideation Acute
[2017-09-05] MEDS: MELATONIN 3 MG TAB PO PRN (21:01)
[2017-09-06] MEDS: chlordiazePOXIDE 25 MG CAP PO SCH (09:17)
[2017-09-06] MEDS: NICOTINE 21 MG/24 HR PATCH TD SCH (09:18)
[2017-09-06] MEDS: FOLIC ACID 1 MG TAB PO SCH (09:18)
[2017-09-06] MEDS: MULTIVITAMINS 1 EACH TAB PO SCH (09:18)
[2017-09-06] MEDS: LORazepam 0.5 MG TAB PO PRN ×2 (09:21→15:58)
[2017-09-06] MEDS ORDERED: chlordiazePOXIDE 25 MG CAP PO SCH (10:25)
[2017-09-06] MEDS: ESCITALOPRAM OXALATE 10 MG TAB PO SCH (13:51)
--- NOTE | 2017-09-06 16:34 | SOAPPROG ---
SOAP Progress Note Assessment/Plan: Assessment: Plan: 09/05/17 18:56 Improving rapidly with no specific treatment. No evidence of withdrawl. [facility]. 09/06/17 16:33 Depression/SI: Continued active c/o's. Will proceed with trial of Lexapro, monitor. Subjective: Pt seen, discussed with staff. Reports feeling "really depressed." Asks to talk about meds again. We reviewed potential antidepressants and he is agreeable to a trial of Lexapro after review of the risks, benefits and alternatives. Discussed d/c plan. He is unclear what level of support to expect from his father. Objective: Vital Signs Temp Pulse Resp BP Pulse Ox 36.7 C 93 16 122/87 H 97 09/06/17 06:20 09/06/17 16:00 09/06/17 16:00 09/06/17 16:00 09/06/17 16:00 - Time Spent With Patient Time Spent With Patient: 25" ICD10 Worksheet Patient Problems: Problems Problem Status Onset Alcoholic intoxication Acute Situational depression Acute Alcohol withdrawal Acute Suicidal ideation Acute
[2017-09-06] MEDS: DIAZEPAM 5 MG TAB PO SCH (21:03)
[2017-09-06] MEDS: MELATONIN 3 MG TAB PO PRN (21:03)
[2017-09-07] MEDS: LORazepam 0.5 MG TAB PO PRN ×2 (06:16→16:17)
[2017-09-07] MEDS: FOLIC ACID 1 MG TAB PO SCH (08:24)
[2017-09-07] MEDS: MULTIVITAMINS 1 EACH TAB PO SCH (08:24)
[2017-09-07] MEDS: DIAZEPAM 5 MG TAB PO SCH ×2 (08:24→21:20)
[2017-09-07] MEDS: NICOTINE 21 MG/24 HR PATCH TD SCH (08:25)
[2017-09-07] MEDS: ESCITALOPRAM OXALATE 10 MG TAB PO SCH (08:38)
--- NOTE | 2017-09-07 17:21 | SOAPPROG ---
SOAP Progress Note Assessment/Plan: Assessment: Plan: 09/05/17 18:56 Improving rapidly with no specific treatment. No evidence of withdrawl. CCM. 09/06/17 16:33 Depression/SI: Continued active c/o's. Will proceed with trial of Lexapro, monitor. 09/07/17 17:21 Depression/SI: SI has resolved. D/c plan in place. CCM. Subjective: Pt seen, discussed with staff. Keely this afternoon. States he is disappointed that "my dad is blowing me off." Plans to return to [place] tomorrow to access services through [facility]. C/o sedation with Lexapro yesterday and refused it this morning. He agrees to take it tonight. Objective: Vital Signs Temp Pulse Resp BP Pulse Ox 36.5 C 87 15 125/88 H 98 09/07/17 00:30 09/07/17 00:30 09/07/17 00:30 09/07/17 00:30 09/07/17 00:30 MSE: Calm, coop. Affect is constricted, stable, approp. Mood is "pretty down. " TP linear. TC reveals no psychosis. Denies current SI. - Time Spent With Patient Time Spent With Patient: 25" ICD10 Worksheet Patient Problems: Problems Problem Status Onset Alcoholic intoxication Acute Situational depression Acute Alcohol withdrawal Acute Suicidal ideation Acute
[2017-09-07 17:38] VITALS: RESP 16
[2017-09-07] MEDS ORDERED: ESCITALOPRAM OXALATE 10 MG TAB PO SCH (21:00)
[2017-09-07] MEDS: MELATONIN 3 MG TAB PO PRN (21:21)
[2017-09-08 06:25] VITALS: BP 113/72; PULSE 84; TEMP 98.2; O2SAT 97
[2017-09-08] MEDS: FOLIC ACID 1 MG TAB PO SCH (08:47)
[2017-09-08] MEDS: MULTIVITAMINS 1 EACH TAB PO SCH (08:47)
[2017-09-08] MEDS: DIAZEPAM 5 MG TAB PO SCH (08:47)
[2017-09-08] MEDS: NICOTINE 21 MG/24 HR PATCH TD SCH ×2 (08:49→09:07)
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
== END 2017-09-08 09:33 | disposition home or self-care (01) | DRG 881 ==
LOC: EDUNIT# → BBEH 09-03 00:40
PROVIDERS: ADMIT Psychiatry & Neurology Behavioral Neurology & Neuropsychiatry; ATTEND Psychiatry & Neurology Behavioral Neurology & Neuropsychiatry
DX: F32.9 Major depressive disorder, single episode, unspecified (principal); Z59.0 Homelessness; Z72.0 Tobacco use; F12.90 Cannabis use, unspecified, uncomplicated; F10.129 Alcohol abuse with intoxication, unspecified; Y90.8 Blood alcohol level of 240 mg/100 ml or more; Z87.820 Personal history of traumatic brain injury; Z76.5 Malingerer [conscious simulation]
CPT/HCPCS: 80305; G0480; J3411